=== PATIENT | female | born 1980 | race Caucasian/White ===

== ENCOUNTER 2016-09-12 18:58 | Emergency (ER) | payer OTHER ==
[~2016-09-12] VITALS: Ht 165.1 cm; Wt 77.1 kg
[2016-09-12] MEDS ORDERED: lamoTRIgine 25 MG TABLET. PO STA (19:26)
[2016-09-12] MEDS ORDERED: IV NORMAL SALINE 1000ML BAG 1,000 ML IV ONE (19:30)
[2016-09-12 19:42] LABS: BASO # 0.1 x10^3/uL (0.0-0.2); BASO % 1 % (0-3); EOS % 0 % (0-3); HEMATOCRIT 42.5 % (36.0-47.0); HEMOGLOBIN 14.4 g/dL (12.0-15.5); LYMPH # 1.2 x10^3/uL (1.0-4.8); LYMPH % 16 % (24-48); MEAN CORPUSCULAR HEMOGLOBIN 33 pg (25-35); MEAN CORPUSCULAR HGB CONC 34 g/dL (31-37); MEAN CORPUSCULAR VOLUME 96 fL (79-100); MONO % 4 % (0-9); NEUT % 80 % (31-73); PLATELET COUNT 189 x10^3/uL (140-400); RED BLOOD COUNT 4.44 x10^6/uL (3.50-5.40); RED CELL DISTRIBUTION WIDTH 13.7 % (11.5-14.5); WHITE BLOOD COUNT 7.9 x10^3/uL (4.0-11.0)
--- NOTE | 2016-09-12 19:49 | PHYS DOC ---
Past Medical History Past Medical History: Seizure Additional Past Medical Histor: Lupus, FACTOR V DEFICIENCY Past Surgical History: , Tubal ligation Alcohol Use: Occasionally Drug Use: Marijuana Adult General Chief Complaint Chief Complaint: SEIZURE HPI HPI Patient is a 36 year old female who presents with complaint of seizure episode. Patient states that she has had multiple seizure episodes today. Patient states that she has been out of her medication for the past week. Patient normally takes Lamictal and Onfi for seizures. Patient states that she recently moved to [place]. Her previous neurologist is located in [place]. She states that she has not followed up with them recently and she is currently looking for a new neurologist here in [place]. Patient denies any atypical symptoms from her seizures. Patient states that she feels fatigued at this time which is normal after having a seizure. Patient is alert and oriented to her surroundings. Review of Systems Review of Systems Constitutional: Fatigue, denies fever or chills [] Eyes: Denies change in visual acuity, redness, or eye pain [] HENT: Denies nasal congestion or sore throat [] Respiratory: Denies cough or shortness of breath [] Cardiovascular: Denies chest pain or edema [] GI: Denies abdominal pain, nausea, vomiting, bloody stools or diarrhea [] : Denies dysuria or hematuria [] Musculoskeletal: Denies back pain or joint pain [] Integument: Denies rash or skin lesions [] Neurologic: Headache, denies focal weakness or sensory changes [] Current Medications Current Medications Current Medications Medications (Trade) Dose Ordered Sig/Audrey Start Time Stop Time Status Last Admin Dose Admin Lamotrigine (LaMICtal) 50 mg 1X STAT 09/12/16 19:26 09/12/16 19:33 DC 09/12/16 20:08 50 MG Lorazepam (Ativan) 2 mg 1X ONCE 09/12/16 19:30 09/12/16 19:33 DC 09/12/16 19:59 2 MG Sodium Chloride 1,000 ml @ 1,000 mls/hr 1X ONCE 09/12/16 19:30 09/12/16 20:29 DC 09/12/16 20:00 1,000 MLS/HR Allergies Allergies Allergies Coded Allergies Type Severity Reaction Last Updated Verified Sulfa (Sulfonamide Antibiotics) Allergy Intermediate 6/13/15 No Physical Exam Physical Exam Constitutional: Drowsy, afebrile, no acute distress. [] HENT: Normocephalic, atraumatic, bilateral external ears normal, oropharynx moist, no oral exudates, nose normal. [] Eyes: PERRLA, EOMI, conjunctiva normal, no discharge. [] Neck: Normal range of motion, no tenderness, supple, no stridor. [] Cardiovascular:Heart rate regular rhythm, no murmur [] Lungs & Thorax: Bilateral breath sounds clear to auscultation [] Abdomen: Bowel sounds normal, soft, no tenderness, no masses, no pulsatile masses. [] Skin: Warm, dry, no erythema, no rash. [] Back: No tenderness, no CVA tenderness. [] Extremities: No tenderness, no cyanosis, no clubbing, ROM intact, no edema. [] Neurologic: Drowsy, oriented X 3, normal motor function, normal sensory function , no focal deficits noted. [] Current Patient Data Vital Signs Vital Signs Date Time Temp Pulse Resp B/P (MAP) Pulse Ox O2 Delivery O2 Flow Rate FiO2 09/12/16 21:24 103 119/58 (78) 98 Room Air 09/12/16 20:02 19 09/12/16 18:59 98.5 98.5 Lab Values Laboratory Tests Test 09/12/16 19:03 09/12/16 19:35 White Blood Count 7.9 x10^3/uL (4.0-11.0) Red Blood Count 4.44 x10^6/uL (3.50-5.40) Hemoglobin 14.4 g/dL (12.0-15.5) Hematocrit 42.5 % (36.0-47.0) Mean Corpuscular Volume 96 fL (79-100) Mean Corpuscular Hemoglobin 33 pg (25-35) Mean Corpuscular Hemoglobin Concent 34 g/dL (31-37) Red Cell Distribution Width 13.7 % (11.5-14.5) Platelet Count 189 x10^3/uL (140-400) Neutrophils (%) (Auto) 80 % (31-73) H Lymphocytes (%) (Auto) 16 % (24-48) L Monocytes (%) (Auto) 4 % (0-9) Eosinophils (%) (Auto) 0 % (0-3) Basophils (%) (Auto) 1 % (0-3) Neutrophils # (Auto) 6.3 x10^3uL (1.8-7.7) Lymphocytes # (Auto) 1.2 x10^3/uL (1.0-4.8) Monocytes # (Auto) 0.3 x10^3/uL (0.0-1.1) Eosinophils # (Auto) 0.0 x10^3/uL (0.0-0.7) Basophils # (Auto) 0.1 x10^3/uL (0.0-0.2) Sodium Level 140 mmol/L (136-145) Potassium Level 3.9 mmol/L (3.5-5.1) Chloride Level 101 mmol/L (98-107) Carbon Dioxide Level 23 mmol/L (21-32) Anion Gap 16 (6-14) H Blood Urea Nitrogen 11 mg/dL (7-20) Creatinine 1.1 mg/dL (0.6-1.0) H Estimated GFR (Cockcroft-Gault) 56.2 Glucose Level 96 mg/dL (70-99) Calcium Level 9.1 mg/dL (8.5-10.1) Urine Collection Type Unknown Urine Color Yellow Urine Clarity Clear Urine pH 7.0 Urine Specific [place] 1.025 Urine Protein 100 mg/dL (NEG-TRACE) Urine Glucose (UA) Negative mg/dL (NEG) Urine Ketones (Stick) Negative mg/dL (NEG) Urine Blood Negative (NEG) Urine Nitrite Negative (NEG) Urine Bilirubin Negative (NEG) Urine Urobilinogen Dipstick 0.2 mg/dL (0.2 mg/dL) Urine Leukocyte Esterase Negative (NEG) Urine RBC Occ /HPF (0-2) Urine WBC Occ /HPF (0-4) Urine Squamous Epithelial Cells Few /LPF Urine Bacteria Few /HPF (0-FEW) Urine Hyaline Casts Many /HPF Urine Test Negative (NEG) Urine Opiates Screen Neg (NEG) Urine Methadone Screen Neg (NEG) Urine Barbiturates Neg (NEG) Urine Phencyclidine Screen Neg (NEG) Urine Amphetamine/Methamphetamine Neg (NEG) Urine Benzodiazepines Screen Neg (NEG) Urine Cocaine Screen Neg (NEG) Urine Cannabinoids Screen Pos (NEG) Urine Ethyl Alcohol Neg (NEG) Laboratory Tests 09/12/16 19:03 Laboratory Tests 09/12/16 19:03 EKG EKG Interpreted by me: Heart rate 85, sinus rhythm, normal intervals, normal axis, no acute ST/T-wave abnormalities present [] Radiology/Procedures Radiology/Procedures Not performed [] Course & Med Decision Making Course & Med Decision Making Pertinent Labs and Imaging studies reviewed. (See chart for details) Patient was given IV Ativan and IV fluids in the emergency department. The patient's lab work is unremarkable. The patient was given Lamictal while in the emergency department. I spoke with Dr. Alexis of neurology. He recommended that the patient started on Lamictal 100 mg twice a day. The patient will also be restarted on Onfi 10 mg daily which she stated was her regular dose. He agreed to follow-up with patient in 1-2 weeks to begin regular neurology follow- up and seizure medication management for the patient. Advised return emergency department for any worsening symptoms. Patient voiced understanding and in agreement with treatment plan. Dragon Disclaimer Dragon Disclaimer This electronic medical record was generated, in whole or in part, using a voice recognition dictation system. Departure Departure Impression: Primary Impression: Seizure disorder Disposition: 01 HOME, SELF-CARE Condition: STABLE Referrals: BART BUTT MD (PCP) Patient Instructions: Seizure, Adult Additional Instructions: Follow-up with Dr. Alexis of neurology in the next 1-2 weeks. Take all medications as prescribed. Return to emergency department for any worsening symptoms. Scripts Lamotrigine (LAMICTAL) 100 Mg Tablet 1 TAB PO BID, #60 TAB 0 Refills Prov: SUSHMA ROSAS MD 09/12/16 SUSHMA ROSAS MD Sep 12, 2016 19:49
[2016-09-12 19:50] LABS: CALCIUM 9.1 mg/dL (8.5-10.1); CREATININE 1.1 mg/dL (0.6-1.0); GFR 56.2; POTASSIUM 3.9 mmol/L (3.5-5.1)
[2016-09-12 19:53] LABS: BILIRUBIN,URINE NEGATIVE (NEG); GLUCOSE,URINE NEGATIVE (NEG); NITRITE,URINE NEGATIVE (NEG); PROTEIN,URINE 100 mg/dL (NEG-TRACE); UROBILINOGEN,URINE 0.2 mg/dL (0.2 mg/dL)
[2016-09-12 19:59] LABS: BARBITURATES NEG (NEG); BENZODIAZEPINES NEG (NEG); CANNABINOIDS POS (NEG); COCAINE NEG (NEG); METHADONE NEG (NEG); OPIATES NEG (NEG); PHENCYCLIDINE NEG (NEG)
[2016-09-12 20:08] LABS: BACTERIA,URINE FEW /HPF (0-FEW); RBC,URINE OCC /HPF (0-2); SQUAMOUS EPITHELIAL CELL,UR FEW /LPF; WBC,URINE OCC /HPF (0-4)
[2016-09-12 20:20] LABS: NEG OBC UR NEG; POS OBC UR POS
[2016-09-12] MEDS ORDERED: LAMO100T5 PO (21:22)
[2016-09-12 21:24] VITALS: BP 119/58
--- NOTE | 2016-09-13 08:19 | EKG ---
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
== END 2016-09-12 21:28 | disposition home or self-care (01) ==
LOC: ER 18:58
DX: G40.909 Epilepsy, unspecified, not intractable, without status epilepticus (principal); M32.9 Systemic lupus erythematosus, unspecified; F12.10 Cannabis abuse, uncomplicated; Z79.899 Other long term (current) drug therapy; Z88.2 Allergy status to sulfonamides
CPT/HCPCS: 36415; 80048; 80305; 80320; 81001; 81025; 85027; 93005; 96361; 96374; 99285; J2060; J7030; G0481

== ENCOUNTER 2016-10-01 21:54 | Emergency (ER) | payer OTHER ==
[~2016-10-01] VITALS: Ht 165.1 cm; Wt 76.2 kg
[2016-10-01 22:05] VITALS: BP 130/65
[2016-10-01 22:31] LABS: BASO % 1 % (0-3); EOS % 6 % (0-3); HEMATOCRIT 39.7 % (36.0-47.0); HEMOGLOBIN 13.5 g/dL (12.0-15.5); LYMPH # 2.1 x10^3/uL (1.0-4.8); LYMPH % 37 % (24-48); MEAN CORPUSCULAR HEMOGLOBIN 32 pg (25-35); MEAN CORPUSCULAR HGB CONC 34 g/dL (31-37); MEAN CORPUSCULAR VOLUME 95 fL (79-100); MONO % 6 % (0-9); NEUT % 50 % (31-73); PLATELET COUNT 168 x10^3/uL (140-400); RED CELL DISTRIBUTION WIDTH 13.3 % (11.5-14.5); WHITE BLOOD COUNT 5.5 x10^3/uL (4.0-11.0)
[2016-10-01 22:57] LABS: CALCIUM 9.2 mg/dL (8.5-10.1); GFR 62.7; POTASSIUM 3.4 mmol/L (3.5-5.1)
[2016-10-01] MEDS ORDERED: IV NORMAL SALINE 1000ML BAG 1,000 ML IV ONE (23:00)
[2016-10-01 23:03] LABS: ALBUMIN 3.8 g/dL (3.4-5.0); TOTAL BILIRUBIN 0.4 mg/dL (0.2-1.0); TOTAL PROTEIN 7.6 g/dL (6.4-8.2)
[2016-10-01 23:18] LABS: BILIRUBIN,URINE NEGATIVE (NEG); GLUCOSE,URINE NEGATIVE (NEG); NITRITE,URINE NEGATIVE (NEG); PH,URINE 5.5; PROTEIN,URINE NEGATIVE (NEG-TRACE); UROBILINOGEN,URINE 0.2 mg/dL (0.2 mg/dL)
[2016-10-01 23:29] LABS: BACTERIA,URINE MODERATE /HPF (0-FEW); RBC,URINE 0 /HPF (0-2); SQUAMOUS EPITHELIAL CELL,UR MOD /LPF
--- NOTE | 2016-10-01 23:53 | PHYS DOC ---
Past Medical History Past Medical History: Seizure Additional Past Medical Histor: Lupus, FACTOR V , Past Surgical History: , Tubal ligation Alcohol Use: Occasionally Drug Use: Marijuana Adult General Chief Complaint Chief Complaint: DIZZY/LIGHT HEADED HPI HPI Patient is a 36 year old female who presents here today complaining of feeling weak and dizzy after painting in a closed room. She reports that the room was well ventilated. Patient reports that approximately 8:30 PM while she was painting she started feeling dizzy. Patient denies any other symptomology. Patient has any fevers shakes chills nausea vomiting diarrhea dysuria frequency urgency chest pain or shortness of breath. Patient has any cough or lower STEMI edema. Patient reports she does smoke. No alcohol or drugs. Patient does have a history of lupus as well as factor V Leiden. Patient's last menstrual period was Wednesday. Patient denies any other symptomology at this time. Patient has any melena or bright red blood per rectum. Patient denies any hematochezia or coffee ground emesis. She is physical exam is unremarkable the ER. She is alert awake oriented 3 moving all extremities well. Patient has a unremarkable exam. Patient's workup in ER has been unremarkable. Patient's labs were all within normal limits. Patient be discharged home in stable condition with likely dehydration. Review of Systems Review of Systems Constitutional: Denies fever or chills [] Eyes: Denies change in visual acuity, redness, or eye pain [] All other review systems are negative except as documented in the history of present illness portion. Current Medications Current Medications Current Medications Medications (Trade) Dose Ordered Sig/[facility] Start Time Stop Time Status Last Admin Dose Admin Sodium Chloride 1,000 ml @ 1,000 mls/hr 1X ONCE 10/01/16 23:00 10/01/16 23:59 DC 10/01/16 22:36 1,000 MLS/HR Allergies Allergies Allergies Coded Allergies Type Severity Reaction Last Updated Verified Sulfa (Sulfonamide Antibiotics) Allergy Intermediate 08/25/14 No Physical Exam Physical Exam Constitutional: Well developed, well nourished, no acute distress, non-toxic appearance. [] HENT: Normocephalic, atraumatic, bilateral external ears normal, oropharynx moist, no oral exudates, nose normal. [] Eyes: PERRLA, EOMI, conjunctiva normal, no discharge. [] Neck: Normal range of motion, no tenderness, supple, no stridor. [] Cardiovascular:Heart rate regular rhythm, no murmur [] Lungs & Thorax: Bilateral breath sounds clear to auscultation [] Abdomen: Bowel sounds normal, soft, no tenderness, no masses, no pulsatile masses. [] Skin: Warm, dry, no erythema, no rash. [] Back: No tenderness, no CVA tenderness. [] Extremities: No tenderness, no cyanosis, no clubbing, ROM intact, no edema. [] Neurologic: Alert and oriented X 3, normal motor function, normal sensory function, no focal deficits noted. [] Psychologic: Affect normal, judgement normal, mood normal. [] Current Patient Data Vital Signs Vital Signs Date Time Temp Pulse Resp B/P (MAP) Pulse Ox O2 Delivery O2 Flow Rate FiO2 10/01/16 22:05 98.1 78 18 130/65 (86) 97 Room Air 98.1 Lab Values Laboratory Tests Test 10/01/16 22:22 10/01/16 23:10 White Blood Count 5.5 x10^3/uL (4.0-11.0) Red Blood Count 4.20 x10^6/uL (3.50-5.40) Hemoglobin 13.5 g/dL (12.0-15.5) Hematocrit 39.7 % (36.0-47.0) Mean Corpuscular Volume 95 fL (79-100) Mean Corpuscular Hemoglobin 32 pg (25-35) Mean Corpuscular Hemoglobin Concent 34 g/dL (31-37) Red Cell Distribution Width 13.3 % (11.5-14.5) Platelet Count 168 x10^3/uL (140-400) Neutrophils (%) (Auto) 50 % (31-73) Lymphocytes (%) (Auto) 37 % (24-48) Monocytes (%) (Auto) 6 % (0-9) Eosinophils (%) (Auto) 6 % (0-3) H Basophils (%) (Auto) 1 % (0-3) Neutrophils # (Auto) 2.7 x10^3uL (1.8-7.7) Lymphocytes # (Auto) 2.1 x10^3/uL (1.0-4.8) Monocytes # (Auto) 0.3 x10^3/uL (0.0-1.1) Eosinophils # (Auto) 0.4 x10^3/uL (0.0-0.7) Basophils # (Auto) 0.0 x10^3/uL (0.0-0.2) Sodium Level 142 mmol/L (136-145) Potassium Level 3.4 mmol/L (3.5-5.1) L Chloride Level 102 mmol/L (98-107) Carbon Dioxide Level 28 mmol/L (21-32) Anion Gap 12 (6-14) Blood Urea Nitrogen 8 mg/dL (7-20) Creatinine 1.0 mg/dL (0.6-1.0) Estimated GFR (Cockcroft-Gault) 62.7 BUN/Creatinine Ratio 8 (6-20) Glucose Level 116 mg/dL (70-99) H Calcium Level 9.2 mg/dL (8.5-10.1) Total Bilirubin 0.4 mg/dL (0.2-1.0) Aspartate Amino Transferase (AST) 23 U/L (15-37) Alanine Aminotransferase (ALT) 28 U/L (14-59) Alkaline Phosphatase 65 U/L (46-116) Troponin I Quantitative 0.025 ng/mL (0.000-0.055) Total Protein 7.6 g/dL (6.4-8.2) Albumin 3.8 g/dL (3.4-5.0) Albumin/Globulin Ratio 1.0 (1.0-1.7) Urine Collection Type Void Urine Color Yellow Urine Clarity Clear Urine pH 5.5 Urine Specific [place] 1.015 Urine Protein Negative mg/dL (NEG-TRACE) Urine Glucose (UA) Negative mg/dL (NEG) Urine Ketones (Stick) Negative mg/dL (NEG) Urine Blood Negative (NEG) Urine Nitrite Negative (NEG) Urine Bilirubin Negative (NEG) Urine Urobilinogen Dipstick 0.2 mg/dL (0.2 mg/dL) Urine Leukocyte Esterase Negative (NEG) Urine RBC 0 /HPF (0-2) Urine WBC 5-10 /HPF (0-4) Urine Squamous Epithelial Cells Mod /LPF Urine Bacteria Moderate /HPF (0-FEW) Urine Hyaline Casts Occasional /HPF Urine Mucus Mod /LPF Laboratory Tests 10/01/16 22:22 Laboratory Tests 10/01/16 22:22 Microbiology 10/01/16 Urine Culture - Preliminary, Resulted 10/01/16 Urine Culture Result 1 (FARZAD) - Preliminary, Resulted EKG EKG [] Radiology/Procedures Radiology/Procedures [] Course & Med Decision Making Course & Med Decision Making Pertinent Labs and Imaging studies reviewed. (See chart for details) [] Dragon Disclaimer Dragon Disclaimer This electronic medical record was generated, in whole or in part, using a voice recognition dictation system. Departure Departure Impression: Primary Impression: Dehydration Disposition: 01 HOME, SELF-CARE Condition: IMPROVED Referrals: BART BUTT MD (PCP) Patient Instructions: Dehydration, Adult MARCUS MORENO MD Oct 01, 2016 23:53
--- NOTE | 2016-10-02 12:26 | EKG ---
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
== END 2016-10-02 00:05 | disposition home or self-care (01) ==
LOC: ER 21:54
DX: E86.0 Dehydration (principal); R53.1 Weakness; R42 Dizziness and giddiness; M32.9 Systemic lupus erythematosus, unspecified; F17.200 Nicotine dependence, unspecified, uncomplicated; F12.10 Cannabis abuse, uncomplicated; Z98.51 Tubal ligation status; Z88.2 Allergy status to sulfonamides
CPT/HCPCS: 36415; 80053; 81001; 84484; 85027; 87086; 93005; 96360; 99285; J7030

== ENCOUNTER → 2016-10-01 | Outpatient (CLI) | payer OTHER ==
[2016-09-12 21:24] VITALS: BP 119/58
[~2016-10-01] MED LIST: LAMO100T5 PO
[2016-10-01 08:36] LABS: BASO % 1 % (0-3); EOS % 10 % (0-3); HEMATOCRIT 40.5 % (36.0-47.0); HEMOGLOBIN 13.7 g/dL (12.0-15.5); LYMPH # 1.7 x10^3/uL (1.0-4.8); LYMPH % 34 % (24-48); MEAN CORPUSCULAR HEMOGLOBIN 32 pg (25-35); MEAN CORPUSCULAR HGB CONC 34 g/dL (31-37); MEAN CORPUSCULAR VOLUME 95 fL (79-100); MONO % 8 % (0-9); NEUT % 48 % (31-73); PLATELET COUNT 176 x10^3/uL (140-400); RED BLOOD COUNT 4.29 x10^6/uL (3.50-5.40); RED CELL DISTRIBUTION WIDTH 12.9 % (11.5-14.5)
[2016-10-01 08:39] LABS: WHITE BLOOD COUNT 5.1 x10^3/uL (4.0-11.0)
[2016-10-01 08:45] LABS: BARBITURATES NEG (NEG); BENZODIAZEPINES POS (NEG); CANNABINOIDS NEG (NEG); COCAINE NEG (NEG); METHADONE NEG (NEG); OPIATES NEG (NEG); PHENCYCLIDINE NEG (NEG)
[2016-10-01 09:11] LABS: ALBUMIN 3.6 g/dL (3.4-5.0); CALCIUM 9.6 mg/dL (8.5-10.1); CREATININE 0.8 mg/dL (0.6-1.0); GFR 81.2; POTASSIUM 3.6 mmol/L (3.5-5.1); TOTAL BILIRUBIN 0.3 mg/dL (0.2-1.0); TOTAL PROTEIN 7.3 g/dL (6.4-8.2)
[2016-10-04 22:08] LABS: LEVETIRACETAM 4.7 ug/mL (10.0-40.0)
[2016-10-05 17:13] LABS: LAMOTRIGINE LEVEL 2.5 ug/mL (2.0-20.0)
== END | disposition home or self-care (01) ==
LOC: LAB 08:04
PROVIDERS: ATTEND Psychiatry & Neurology Neurology
DX: R56.9 Unspecified convulsions (principal)
CPT/HCPCS: 36415; 80053; 80175; 80177; 85027; G0481

== ENCOUNTER → 2016-10-02 | Outpatient (CLI) | payer OTHER ==
[2016-10-01 22:05] VITALS: BP 130/65
--- NOTE | 2016-10-05 21:10 | EEG ---
DATE OF SERVICE: 10/02/2016 EEG NUMBER: [id number]. OBJECTIVE: This is a 36-year-old female patient with history of seizure. EEG was requested to evaluate the seizure activity. METHODS: Twenty electrodes were applied according to the international 10-20 electrode placement system. EKG monitoring, hyperventilation, intermittent photic stimulation, monopolar and bipolar montages are routinely utilized. The record was obtained on a digital system with video monitoring. FINDINGS: 1. Background: The patient was recorded in the awake and drowsy states. No sleep state was recorded. The overall background amplitude is 10-20 microvolts. A posterior dominant rhythm of 8-9 Hz is observed. 2. Abnormalities: No specific epileptiform discharge or electrographic seizure is seen. No focal or diffuse slowing. 3. Activation: Hyperventilation was performed with good efforts and normal response. Intermittent photic stimulation was performed with photic driving. No specific epileptiform discharge or electrographic seizure induced by hyperventilation or intermittent photic stimulation. IMPRESSION: This EEG is a normal study for the awake and drowsy states. No sleep state was recorded. No focal, lateralizing, specific epileptiform discharge or electrographic seizure is seen; however, a normal EEG does not rule out seizure. OVIDIO FABIAN MD DR: YOMI/lo JOB#: [id number] / [id number]
== END | disposition home or self-care (01) ==
LOC: RT 10:34
PROVIDERS: ATTEND Psychiatry & Neurology Neurology
DX: R56.9 Unspecified convulsions (principal)
CPT/HCPCS: 95816

== ENCOUNTER 2016-10-11 00:19 | Emergency (ER) | payer OTHER ==
[~2016-10-11] VITALS: Ht 165.1 cm; Wt 77.1 kg
[2016-10-11 00:22] VITALS: BP 135/75
[2016-10-11] MEDS ORDERED: ACETAMINOPHEN/CODEINE 300/30MG TABLET. PO ONE (01:00)
[2016-10-11] MEDS ORDERED: IBUPROFEN 400 MG TABLET. PO ONE (01:00)
[2016-10-11] MEDS ORDERED: HYDROcodone/APAP 5/325MG 1 TAB TABLET PO ONE (01:30)
--- NOTE | 2016-10-11 01:38 | PHYS DOC ---
Past Medical History Past Medical History: Seizure Additional Past Medical Histor: Lupus, FACTOR V , Past Surgical History: , Tubal ligation Alcohol Use: Occasionally Drug Use: Marijuana Adult General Chief Complaint Chief Complaint: FOOT INJURY PAIN HPI HPI Patient is a 36 year old female who comes in with complaints of bilateral foot pain after falling on the stairs, patient denies any other injury, patient has no other complaints. There was no head, neck, chest, abdomen, pelvis or knee trauma Review of Systems Review of Systems Constitutional: Denies fever or chills [] HENT: No head or neck injury Respiratory: No shortness of breath [] Cardiovascular: No chest pain GI: Denies abdominal pain, Musculoskeletal: Denies back pain. Denies hip pain or knee pain. Has bilateral foot pain Integument: Denies rash or skin lesions [] Neurologic: Denies headache, focal weakness or sensory changes [] all other systems reviewed and found to be negative unless otherwise stated Current Medications Current Medications Current Medications Medications (Trade) Dose Ordered Sig/Audrey Start Time Stop Time Status Last Admin Dose Admin Acetaminophen/ Codeine Phosphate (Tylenol #3) 1 tab 1X ONCE 10/11/16 01:00 10/11/16 01:01 DC 10/11/16 00:54 1 TAB Acetaminophen/ Hydrocodone Bitart (Lortab 5/325) 1 tab 1X ONCE 10/11/16 01:30 10/11/16 01:38 DC 10/11/16 01:27 1 TAB Ibuprofen (Motrin) 400 mg 1X ONCE 10/11/16 01:00 10/11/16 01:01 DC 10/11/16 00:54 400 MG Allergies Allergies Allergies Coded Allergies Type Severity Reaction Last Updated Verified Sulfa (Sulfonamide Antibiotics) Allergy Intermediate 08/25/14 No Physical Exam Physical Exam Constitutional: Well developed, well nourished, mild distress, non-toxic appearance. [] HENT: Normocephalic, atraumatic, Eyes: EOMI, conjunctiva normal, no discharge. [] Neck: Normal range of motion, no tenderness, Cardiovascular: Distal pulses intact, no chest deformity Lungs & Thorax: No tachypnea Abdomen: Nondistended, nontender Skin: Warm, dry, no erythema, no rash. No lacerations. Bruising lateral aspect of the left foot. Back: No tenderness, Extremities: Tenderness middle of the left foot at the lateral aspect, tenderness at the right ankle Neurologic: Alert and oriented X 3, normal motor function, no focal deficits noted. [] Psychologic: Affect normal, judgement normal, mood normal. [] Current Patient Data Vital Signs Vital Signs Date Time Temp Pulse Resp B/P (MAP) Pulse Ox O2 Delivery O2 Flow Rate FiO2 10/11/16 01:27 20 10/11/16 00:22 97.9 90 97 Room Air 97.9 EKG EKG [] Radiology/Procedures Radiology/Procedures X-ray read by me, preliminarily and this has been explained to the patient: Distal fibular fracture right, psudojones fracture left. Findings discussed with Dr Liu who will see pt in office in one week. Recommends camboot for right foot/ankle.[] Course & Med Decision Making Course & Med Decision Making Pertinent Labs and Imaging studies reviewed. (See chart for details) Patient is to follow up as directed, she agrees to do so 0200 Posterior splint application done by Mariann Good alignment, neurovascularly intact, no signs of compartment syndrome. Unfortunately, we do not have CAM boots in the ED but the patient states she we' ll go and get one after being discharged [] Dragon Disclaimer Dragon Disclaimer This electronic medical record was generated, in whole or in part, using a voice recognition dictation system. Departure Departure Impression: Primary Impression: Ankle fracture, right Disposition: 01 HOME, SELF-CARE Condition: IMPROVED Referrals: BART BUTT MD (PCP) TERE LIU MD Additional Instructions: There is a possibility he may have a fracture in one of the tarsal bones in the left foot. The x-rays read will be rechecked by her urologist in the morning and he will be notified if you they confirmed a fracture there. In the meantime place wear the stiff shoe on the left foot. Please keep the splint in the right ankle until you obtain the CAM boot for the right ankle. Please do not bear weight on the right foot and use crutches. Once you have the CAM boot you can walk on it. a prescription for a CAM boot is being provided for you Please follow up with Dr Liu in one week, call wednesday for an appointment. Scripts Ibuprofen (IBUPROFEN) 400 Mg Tablet 400 MG PO PRN Q6HRS Y for PAIN for 7 Days, #20 TAB Prov: Jacob COYLE MD 10/11/16 Hydrocodone/Apap 5-325 (NORCO 5-325 TABLET) 1 Each Tablet 1 TAB PO PRN Q6HRS Y for PAIN for 16 Days, TAB 0 Refills Prov: Jacob COYLE MD 10/11/16 Jacob COYLE MD Oct 11, 2016 01:38
[2016-10-11] MEDS ORDERED: HYDR-971 PO (01:56)
[2016-10-11] MEDS ORDERED: IBUP-1027 PO (01:56)
--- NOTE | 2016-10-11 07:44 | RAD ---
Indications: Injury. Pain. Three-view right ankle series: There is a nondisplaced oblique fracture distal right fibular metadiaphysis. The mortise ankle joint is intact. Three-view study of the right foot: No acute fracture or dislocation or osteolytic process is seen. Three-view study of the left foot: There is a nondisplaced transverse fracture of the base of the fifth metatarsal bone. No dislocation or osteolytic process is seen. IMPRESSION: Post traumatic fractures of the distal right fibula and the fifth metatarsal bone of the left foot.
[2016-10-11] MEDS ORDERED: CLOB10TA PO (15:22)
[2016-10-11] MEDS ORDERED: CITA20TA9 PO (15:22)
[2016-10-12] MEDS ORDERED: WARF5TAB7 PO (17:06)
[2016-10-12] MEDS ORDERED: CYCL10TA2 PO (17:06)
[2016-10-12] MEDS ORDERED: LEVE500T6 PO (17:06)
== END 2016-10-11 02:24 | disposition home or self-care (01) ==
LOC: ER 00:19
DX: S92.355A Nondisplaced fracture of fifth metatarsal bone, left foot, initial encounter for closed fracture (principal); M32.9 Systemic lupus erythematosus, unspecified; F12.10 Cannabis abuse, uncomplicated; W10.9XXA Fall (on) (from) unspecified stairs and steps, initial encounter; Y93.89 Activity, other specified; Y99.8 Other external cause status; Y92.89 Other specified places as the place of occurrence of the external cause
CPT/HCPCS: 29515; 73610; 73630; 99284-25

== ENCOUNTER 2016-10-11 08:09 | Observation (INO) | payer OTHER ==
[~2016-10-11] VITALS: Ht 165.1 cm; Wt 78.0 kg
[~2016-10-11 08:09] MED LIST changes: +HYDR-971 PO; +IBUP-1027 PO
[2016-10-11 09:10] LABS: BASO % 0 % (0-3); EOS % 1 % (0-3); HEMATOCRIT 40.2 % (36.0-47.0); HEMOGLOBIN 13.5 g/dL (12.0-15.5); LYMPH # 0.5 x10^3/uL (1.0-4.8); LYMPH % 5 % (24-48); MEAN CORPUSCULAR HEMOGLOBIN 32 pg (25-35); MEAN CORPUSCULAR HGB CONC 34 g/dL (31-37); MEAN CORPUSCULAR VOLUME 97 fL (79-100); MONO % 5 % (0-9); NEUT % 89 % (31-73); PLATELET COUNT 151 x10^3/uL (140-400); RED BLOOD COUNT 4.17 x10^6/uL (3.50-5.40); RED CELL DISTRIBUTION WIDTH 13.5 % (11.5-14.5); WHITE BLOOD COUNT 9.2 x10^3/uL (4.0-11.0)
[2016-10-11 09:17] LABS: ALBUMIN 3.7 g/dL (3.4-5.0); CALCIUM 8.1 mg/dL (8.5-10.1); CREATININE 1.1 mg/dL (0.6-1.0); GFR 56.2; POTASSIUM 3.6 mmol/L (3.5-5.1); TOTAL BILIRUBIN 0.2 mg/dL (0.2-1.0); TOTAL PROTEIN 7.3 g/dL (6.4-8.2)
[2016-10-11 09:25] LABS: INR 1.1 (0.8-1.1); PROTHROMBIN TIME PATIENT 13.7 SEC (11.7-14.0)
--- NOTE | 2016-10-11 10:27 | PHYS DOC ---
Past Medical History Past Medical History: Seizure Additional Past Medical Histor: Lupus, FACTOR V Past Surgical History: , Tubal ligation Alcohol Use: Occasionally Drug Use: Marijuana Adult General Chief Complaint Chief Complaint: SEIZURE HPI HPI Patient is a 36 year old female brought to the ED from home by EMS with a report of 3 seizures this morning. History is from EMS and the patient's who came in as well. Patient had 3 brief seizures in bed this morning. She does have a seizure disorder. When she has one seizure he usually doesn't worry about it but if she has more than one he will call 911. Today EMS report a brief generalized seizure in route to the ED. They gave her 5 mg of IV Versed in route which did stop the seizure. Patient does have a history of a seizure disorder. She recently had an EEG that did not show any seizure activity. They used to live in [place] and has moved to this area recently, she has been seeing for seizure disorder. Meds brought with the patient by EMS include lamotrigine 100 mg twice a day, Onfi 10 mg daily, and Levitarem 500 mg twice a day. Patient's states that he believes she did miss last night's dose of seizure medications because she was actually seen in the ED last evening for a fall with a broken foot. She has not had any medications this morning. 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 Patient brings in a bag of medications and has been states she is taking her medications as prescribed. Review of Systems Review of Systems Review of systems was not able to be obtained due to the patient's altered mental status Current Medications Current Medications Current Medications Medications (Trade) Dose Ordered Sig/Audrey Start Time Stop Time Status Last Admin Dose Admin Acetaminophen/ Hydrocodone Bitart (Lortab 5/325) 1 tab 1X ONCE 10/11/16 10:45 10/11/16 10:46 DC 10/11/16 10:45 1 TAB Levetiracetam 1000 mg/Sodium Chloride 110 ml @ 440 mls/hr 1X ONCE 10/11/16 08:30 10/11/16 08:44 DC 10/11/16 08:38 440 MLS/HR Levetiracetam 500 mg/Sodium Chloride 100 ml @ 400 mls/hr 1X ONCE 10/11/16 08:15 10/11/16 08:22 DC Allergies Allergies Allergies Coded Allergies Type Severity Reaction Last Updated Verified Sulfa (Sulfonamide Antibiotics) Allergy Intermediate 08/25/14 No Physical Exam Physical Exam Constitutional: Well developed, well nourished, good color, snoring respirations , appears postictal, no response to verbal or painful on arrival HENT: Normocephalic, atraumatic, bilateral external ears normal, oropharynx moist, nose normal. [] Eyes: PERRLA, EOMI, conjunctiva normal, no discharge. [] Neck: Normal range of motion, no stridor. [] Cardiovascular:Heart rate regular rhythm, no murmur [] Lungs & Thorax: Bilateral breath sounds clear to auscultation [] Abdomen: Bowel sounds normal, soft, no masses, no pulsatile masses. [] Skin: Warm, dry, no erythema, no rash. [] Extremities: Right leg is in a stirrup splint and left foot is in a postop shoe secondary to her visit last night in the ED with fractures diagnosed, no edema, no cyanosis, good color Neurologic: Patient appears postictal on arrival with snoring respirations. She is having very minimal spontaneous movements of all 4 extremities on occasion but mostly unresponsive. Normal to decreased tone in all 4 extremities. Current Patient Data Vital Signs Vital Signs Date Time Temp Pulse Resp B/P (MAP) Pulse Ox O2 Delivery O2 Flow Rate FiO2 10/11/16 11:00 74 18 124/70 (88) 94 Room Air 10/11/16 09:09 4.0 10/11/16 08:09 97.9 97.9 Lab Values Laboratory Tests Test 10/11/16 08:50 White Blood Count 9.2 x10^3/uL (4.0-11.0) Red Blood Count 4.17 x10^6/uL (3.50-5.40) Hemoglobin 13.5 g/dL (12.0-15.5) Hematocrit 40.2 % (36.0-47.0) Mean Corpuscular Volume 97 fL (79-100) Mean Corpuscular Hemoglobin 32 pg (25-35) Mean Corpuscular Hemoglobin Concent 34 g/dL (31-37) Red Cell Distribution Width 13.5 % (11.5-14.5) Platelet Count 151 x10^3/uL (140-400) Neutrophils (%) (Auto) 89 % (31-73) H Lymphocytes (%) (Auto) 5 % (24-48) L Monocytes (%) (Auto) 5 % (0-9) Eosinophils (%) (Auto) 1 % (0-3) Basophils (%) (Auto) 0 % (0-3) Neutrophils # (Auto) 8.1 x10^3uL (1.8-7.7) H Lymphocytes # (Auto) 0.5 x10^3/uL (1.0-4.8) L Monocytes # (Auto) 0.4 x10^3/uL (0.0-1.1) Eosinophils # (Auto) 0.1 x10^3/uL (0.0-0.7) Basophils # (Auto) 0.0 x10^3/uL (0.0-0.2) Segmented Neutrophils % 93 % (35-66) H Band Neutrophils % 2 % (0-9) Lymphocytes % 4 % (24-48) L Eosinophils % 1 % (0-5) Platelet Estimate Adequate (ADEQUATE) Prothrombin Time 13.7 SEC (11.7-14.0) Prothrombin Time INR 1.1 (0.8-1.1) Sodium Level 139 mmol/L (136-145) Potassium Level 3.6 mmol/L (3.5-5.1) Chloride Level 104 mmol/L (98-107) Carbon Dioxide Level 23 mmol/L (21-32) Anion Gap 12 (6-14) Blood Urea Nitrogen 10 mg/dL (7-20) Creatinine 1.1 mg/dL (0.6-1.0) H Estimated GFR (Cockcroft-Gault) 56.2 BUN/Creatinine Ratio 9 (6-20) Glucose Level 87 mg/dL (70-99) Calcium Level 8.1 mg/dL (8.5-10.1) L Total Bilirubin 0.2 mg/dL (0.2-1.0) Aspartate Amino Transferase (AST) 24 U/L (15-37) Alanine Aminotransferase (ALT) 22 U/L (14-59) Alkaline Phosphatase 54 U/L (46-116) Total Protein 7.3 g/dL (6.4-8.2) Albumin 3.7 g/dL (3.4-5.0) Albumin/Globulin Ratio 1.0 (1.0-1.7) Laboratory Tests 10/11/16 08:50 Laboratory Tests 10/11/16 08:50 EKG EKG [] Radiology/Procedures Radiology/Procedures CT scan of the head read by the radiologist. No acute findings. [] Course & Med Decision Making Course & Med Decision Making Pertinent Labs and Imaging studies reviewed. (See chart for details) 36 yo female who does have a history of seizure disorder and is on 3 medications for seizures presents after having 3 seizures at home and one in route by EMS. Evidently I talked to the patient's that this is not terribly unusual. He states that "stress" bring on her seizures. Also reportedly she did miss her doses last night of seizure medications because of having a fall, injury, being in the ED. Patient was given IV Versed 5 mg by EMS for a witnessed seizure. Therefore, she presented to the ED not only postictal but having a large amount of Versed on board. She was observed for over an hour and did not really regain a normal level of consciousness although she slowly was more responsive, would open her eyes to verbal but not able to verbally answer. I did decide to CT her head because of this delayed improvement which was negative. She was given IV Keppra 1 g in the ED for 4 seizures. She does take Keppra at home but, see below, compliance is in doubt. I discussed compliance with the patient . He believes that she is usually compliant, but he states she could definitely have missed a dose or even to since she was in the emergency department last night after a fall and a fracture. I also did note that despite having warfarin bottles in her bag, she has an INR of 1.1. I believe that the patient should be admitted for observation and mental status checks since she is not back to baseline after having had 4 seizures this morning. She is not having continued seizures. She is not in status. There has been no seizure activity in the emergency department. After postictal state resolved, she will open her eyes, she will make some spontaneous movements of her extremities, and then as she improved she began to complain of pain and requested pain pill with her foot fracture diagnosed last night. I discussed the case with Dr. Montoya who will admit the patient. I wrote bridge orders. At the time of transfer from the ED to the floor, the patient has eyes open, discussing her foot pain, but remains somewhat lethargic and not back to her baseline according to her . She is nonfocal, generally somewhat depressed LOC, which certainly could be a result of having had 4 seizures and IV Versed. [] Dragon Disclaimer Dragon Disclaimer This electronic medical record was generated, in whole or in part, using a voice recognition dictation system. Departure Departure Impression: Primary Impression: Seizure Additional Impression: Altered mental status Disposition: 09 ADMITTED INPATIENT Admitting Physician: Shen Montoya Referrals: BART BUTT MD (PCP) Problem Qualifiers MANDY GUSMAN MD Oct 11, 2016 10:27
[2016-10-11 10:33] LABS: % EOS 1 % (0-5); PLT ESTIMATE ADEQUATE (ADEQUATE)
--- NOTE | 2016-10-11 10:43 | RAD ---
Clinical indications: Seizure. No improvement in mental status change. On warfarin.. Technique: Noncontrast axial cross sectional scanning of the head was performed. Comparison: February 05, 2015. PQRS Compliance Statement: One or more of the following individualized dose reduction techniques were utilized for this examination: 1. Automated exposure control 2. Adjustment of the mA and/or kV according to patient size 3. Use of iterative reconstruction technique Findings: No acute intracranial hemorrhage or midline shift or mass-effect or hydrocephalus or extra-axial fluid collection is seen. No focal hypodense area or sulci effacement is seen to indicate an acute infarct or edema radiographically. No skull fracture or pneumocephalus is seen. No opacification of the mastoid sinuses or the paranasal sinuses is seen. The maxillary sinuses are not completely seen in this study. Impression: No acute intracranial abnormality is seen.
[2016-10-11] MEDS ORDERED: HYDROcodone/APAP 5/325MG 1 TAB TABLET PO ONE (10:45)
[2016-10-11 11:52] VITALS: BP 122/50
[2016-10-11 11:53] VITALS: BP 122/50
[2016-10-11 15:03] VITALS: BP 105/48
[2016-10-11] MEDS ORDERED: CLOB10TA PO (15:22)
[2016-10-11] MEDS ORDERED: CITA20TA9 PO (15:22)
[2016-10-11] MEDS: HYDROcodone/APAP 5/325MG 1 TAB TABLET PO PRN (18:28)
--- NOTE | 2016-10-11 18:54 | PDOC2 ---
NEUROLOGY CONSULT Date of Admission Date of Admission Full Report Dictated DATE: 10/11/16 TIME: 18:51 Reason for Consult Reason for Consult: Patient is a 36-year-old woman with a long-standing seizure disorder. She has been on polypharmacy with levetiracetam, lamotrigine and Onfi. She missed 2 dosages because of extenuating circumstances. She had 3 seizures at home and one in the ambulance. Her usual anticonvulsants have been resumed. If she remains seizure free tomorrow morning that she may be dismissed from a neurologic perspective and follow-up with Dr. Moore with whom she has seen before. Current Medications Current Medications Current Medications Levetiracetam 500 mg/Sodium Chloride 100 ml @ 400 mls/hr 1X ONCE IV ; Start at 08:15; Stop 10/11/16 at 08:22; Status DC Levetiracetam 1000 mg/Sodium Chloride 110 ml @ 440 mls/hr 1X ONCE IV Last administered on 10/11/16 08:38; Start 10/11/16 at 08:30; Stop 10/11/16 at 08:44 ; Status DC Acetaminophen/ Hydrocodone Bitart (Lortab 5/325) 1 tab 1X ONCE PO Last administered on 10/11/16 10:45; Start 10/11/16 at 10:45; Stop 10/11/16 at 10:46 ; Status DC Levetiracetam (Keppra) 500 mg BID PO ; Start 10/11/16 at 21:00 Lamotrigine (LaMICtal) 100 mg BID PO ; Start 10/11/16 at 21:00 Non-Formulary Medication 1 ea DAILY08 PO ; Start 10/12/16 at 08:00; Status UNV Sodium Chloride 500 ml @ 500 mls/hr 1X ONCE IV Last administered on 18:29; Start 10/11/16 at 19:00; Stop 10/11/16 at 19:59 Acetaminophen/ Hydrocodone Bitart (Lortab 5/325) 1 tab PRN Q4HRS PRN PO PAIN Last administered on 10/11/16 18:28; Start 10/11/16 at 18:30 Active Scripts Active Ibuprofen 400 Mg Tablet 400 Mg PO PRN Q6HRS PRN 7 Days [place] 5-325 Tablet (Acetaminophen/Hydrocodone Bitart) 1 Each Tablet 1 Tab PO PRN Q6HRS PRN 16 Days Lamictal (Lamotrigine) 100 Mg Tablet 1 Tab PO BID Reported Celexa (Citalopram Hydrobromide) 20 Mg Tablet 1 Tab PO DAILY Onfi (Clobazam) 10 Mg Tablet 10 Mg PO Allergies Allergies: Coded Allergies: Sulfa (Sulfonamide Antibiotics) (Unverified Allergy, Intermediate, 08/25/14 ) Vitals VITALS Vital Signs Date Time Temp Pulse Resp B/P (MAP) Pulse Ox O2 Delivery O2 Flow Rate FiO2 10/11/16 18:28 98 Room Air 4.0 10/11/16 15:03 98.7 82 19 105/48 (67) 98.7 Labs Labs Laboratory Tests Test 10/11/16 08:50 White Blood Count 9.2 x10^3/uL (4.0-11.0) Red Blood Count 4.17 x10^6/uL (3.50-5.40) Hemoglobin 13.5 g/dL (12.0-15.5) Hematocrit 40.2 % (36.0-47.0) Mean Corpuscular Volume 97 fL (79-100) Mean Corpuscular Hemoglobin 32 pg (25-35) Mean Corpuscular Hemoglobin Concent 34 g/dL (31-37) Red Cell Distribution Width 13.5 % (11.5-14.5) Platelet Count 151 x10^3/uL (140-400) Neutrophils (%) (Auto) 89 % (31-73) Lymphocytes (%) (Auto) 5 % (24-48) Monocytes (%) (Auto) 5 % (0-9) Eosinophils (%) (Auto) 1 % (0-3) Basophils (%) (Auto) 0 % (0-3) Neutrophils # (Auto) 8.1 x10^3uL (1.8-7.7) Lymphocytes # (Auto) 0.5 x10^3/uL (1.0-4.8) Monocytes # (Auto) 0.4 x10^3/uL (0.0-1.1) Eosinophils # (Auto) 0.1 x10^3/uL (0.0-0.7) Basophils # (Auto) 0.0 x10^3/uL (0.0-0.2) Segmented Neutrophils % 93 % (35-66) Band Neutrophils % 2 % (0-9) Lymphocytes % 4 % (24-48) Eosinophils % 1 % (0-5) Platelet Estimate Adequate (ADEQUATE) Prothrombin Time 13.7 SEC (11.7-14.0) Prothromb Time International Ratio 1.1 (0.8-1.1) Sodium Level 139 mmol/L (136-145) Potassium Level 3.6 mmol/L (3.5-5.1) Chloride Level 104 mmol/L (98-107) Carbon Dioxide Level 23 mmol/L (21-32) Anion Gap 12 (6-14) Blood Urea Nitrogen 10 mg/dL (7-20) Creatinine 1.1 mg/dL (0.6-1.0) Estimated GFR (Cockcroft-Gault) 56.2 BUN/Creatinine Ratio 9 (6-20) Glucose Level 87 mg/dL (70-99) Calcium Level 8.1 mg/dL (8.5-10.1) Total Bilirubin 0.2 mg/dL (0.2-1.0) Aspartate Amino Transf (AST/SGOT) 24 U/L (15-37) Alanine Aminotransferase (ALT/SGPT) 22 U/L (14-59) Alkaline Phosphatase 54 U/L (46-116) Total Protein 7.3 g/dL (6.4-8.2) Albumin 3.7 g/dL (3.4-5.0) Albumin/Globulin Ratio 1.0 (1.0-1.7) Laboratory Tests Test 10/11/16 08:50 White Blood Count 9.2 x10^3/uL (4.0-11.0) Red Blood Count 4.17 x10^6/uL (3.50-5.40) Hemoglobin 13.5 g/dL (12.0-15.5) Hematocrit 40.2 % (36.0-47.0) Mean Corpuscular Volume 97 fL (79-100) Mean Corpuscular Hemoglobin 32 pg (25-35) Mean Corpuscular Hemoglobin Concent 34 g/dL (31-37) Red Cell Distribution Width 13.5 % (11.5-14.5) Platelet Count 151 x10^3/uL (140-400) Neutrophils (%) (Auto) 89 % (31-73) Lymphocytes (%) (Auto) 5 % (24-48) Monocytes (%) (Auto) 5 % (0-9) Eosinophils (%) (Auto) 1 % (0-3) Basophils (%) (Auto) 0 % (0-3) Neutrophils # (Auto) 8.1 x10^3uL (1.8-7.7) Lymphocytes # (Auto) 0.5 x10^3/uL (1.0-4.8) Monocytes # (Auto) 0.4 x10^3/uL (0.0-1.1) Eosinophils # (Auto) 0.1 x10^3/uL (0.0-0.7) Basophils # (Auto) 0.0 x10^3/uL (0.0-0.2) Segmented Neutrophils % 93 % (35-66) Band Neutrophils % 2 % (0-9) Lymphocytes % 4 % (24-48) Eosinophils % 1 % (0-5) Platelet Estimate Adequate (ADEQUATE) Prothrombin Time 13.7 SEC (11.7-14.0) Prothromb Time International Ratio 1.1 (0.8-1.1) Sodium Level 139 mmol/L (136-145) Potassium Level 3.6 mmol/L (3.5-5.1) Chloride Level 104 mmol/L (98-107) Carbon Dioxide Level 23 mmol/L (21-32) Anion Gap 12 (6-14) Blood Urea Nitrogen 10 mg/dL (7-20) Creatinine 1.1 mg/dL (0.6-1.0) Estimated GFR (Cockcroft-Gault) 56.2 BUN/Creatinine Ratio 9 (6-20) Glucose Level 87 mg/dL (70-99) Calcium Level 8.1 mg/dL (8.5-10.1) Total Bilirubin 0.2 mg/dL (0.2-1.0) Aspartate Amino Transf (AST/SGOT) 24 U/L (15-37) Alanine Aminotransferase (ALT/SGPT) 22 U/L (14-59) Alkaline Phosphatase 54 U/L (46-116) Total Protein 7.3 g/dL (6.4-8.2) Albumin 3.7 g/dL (3.4-5.0) Albumin/Globulin Ratio 1.0 (1.0-1.7) ZWIBELMAN,MIRIAN S MD Oct 11, 2016 18:54
[2016-10-11 19:00] VITALS: BP_SYST 100; BP_SYST 105; BP_DIAS 48; BP_DIAS 57
[2016-10-11] MEDS ORDERED: IV NORMAL SALINE 500ML BAG 500 ML IV ONE (19:00)
--- NOTE | 2016-10-11 19:44 | HP ---
ADMIT DATE: 10/11/2016 CHIEF COMPLAINT: Seizure. HISTORY OF PRESENT ILLNESS: The patient is a pleasant 36-year-old female who is on 3 seizure meds. She apparently skipped the dose in the past day or two, now she has had another seizure. I discussed the case with the ER physician. We are going to admit the patient and consult Neurology. PAST MEDICAL HISTORY: Seizure disorder, recent left leg fracture. ALLERGIES: None. FAMILY HISTORY: Seizure. SOCIAL HISTORY: She does not drink, smoke, or take drugs. MEDICATIONS: Reviewed, please refer the MRAD. REVIEW OF SYSTEMS: Unobtainable, the patient is postictal. PHYSICAL EXAMINATION: VITAL SIGNS: Stable. GENERAL: She is sleeping. She awakens not a little bit, but seems a little confused. HEART: Distant S1, S2. LUNGS: Clear. ABDOMEN: Soft. EXTREMITIES: No edema. SKIN: No rashes. ENDOCRINE: No thyromegaly. LYMPHATICS: No cervical nodes. HEMATOPOIETIC: No bruising. EXTREMITIES: The left leg is in a cast, she broke it a couple days ago. ASSESSMENT AND PLAN: Resolving [id number] seizures with the postictal state. The patient has been admitted, we will consult Dr. Moore. We will try to resume the home medicines, IV fluids, hope to discharge tomorrow. KINGSLEY CROW DO DR: PAPO/lo JOB#: [id number] / [id number]
[2016-10-11] MEDS: lamoTRIgine 100 MG TABLET. PO SCH (20:26)
[2016-10-11] MEDS: levETIRAcetam 500 MG TABLET PO SCH (20:26)
[2016-10-11 23:00] VITALS: BP 103/50
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
[2016-10-12 03:00] VITALS: BP 98/42
--- NOTE | 2016-10-12 05:17 | ACF ---
Admission Forms Criteria SEIZURE Clinical Indications for Admission to Inpatient Care (Place 'X' for any and all applicable criteria): Admission is indicated for seizure and ANY ONE of the following(1)(2)(3)(4)(5): [ X]I. Inpatient admission required rather than observation care (Also use Seizure: Observation Care Criteria as appropriate) because of ANY ONE of the following: [ ]a) Altered mental status that is severe or persistent [ ]b) New focal neurologic deficit that is severe or persistent [ ]c) Metabolic disorder (eg, hypoglycemia, hyponatremia) that is severe or persistent [X ]d) Recurrent seizure [ ]e) Outpatient antiseizure regimen cannot be established (eg , patient cannot tolerate medication, initiation requires inpatient care) [ ]f) Need for ongoing intravenous infusion of antiseizure medication [ ]g) Cardiac arrhythmias of immediate concern [ ]h) Cerebral bleeding, hydrocephalus, or vasospasm monitoring (14) [ ]i) Increased intracranial pressure or cerebral edema monitoring (15) [ ]j) Other treatment or monitoring requiring inpatient admission [ ]II. Status epilepticus [A] or repetitive seizures not controlled with emergent treatment (6)(8) [ ]III. Brain disorder (eg, tumor, edema, and hydrocephalus) that requiring monitoring or intervention available only at inpatient level of care. [ ]IV. Brain insult (eg, severe trauma, stroke, drug toxicity, or withdrawal) that requires monitoring or intervention available only at inpatient level of care (10)(11) Extended stay beyond goal length of stay may be needed for (22) [ ]a) Complications of status epilepticus [ ]b) Refractory status epilepticus [ ]c) Etiology-specific therapy for conditions such as MEDIC TECHNICIAN infection, head injury,eclampsia, severe metabolic abnormalities, and brain tumor [ ]d) Residual neurologic damage, [ ]e) Initiation of significant change to anticonvulsant treatment [ ]f) Older patients (65 years or older) [ ]g) Patient requiring intubation (eg, to protect airway) The original [employer] content created by [employer] has been revised. The portions of the content which have been revised are identified through the use of italic text or in bold, and [facility] [employer] has neither reviewed nor approved the modified material. All other unmodified content is copyright [facility] [employer]. Please see references footnoted in the original [facility] edition 2016 Admission Criteria Met?: Yes JVOANNY WYMAN Oct 12, 2016 05:17
[2016-10-12 06:54] VITALS: BP 101/37
[2016-10-12] MEDS: ONFI 10 MG PO SCH (08:00)
[2016-10-12] MEDS: HYDROcodone/APAP 5/325MG 1 TAB TABLET PO PRN (09:04)
[2016-10-12] MEDS: levETIRAcetam 500 MG TABLET PO SCH ×2 (09:04→21:11)
[2016-10-12] MEDS: lamoTRIgine 100 MG TABLET. PO SCH ×2 (09:04→21:11)
[2016-10-12 10:57] VITALS: BP 101/45
[2016-10-12 14:49] VITALS: BP 96/37
--- NOTE | 2016-10-12 15:11 | PDOC ---
PROGRESS NOTES Chief Complaint Chief Complaint 1. Longstanding seizure disorder 2. Leiden factor V mutation. 3. Lupus. 4. History of . 5. Tubal ligation. right leg and left foot traumatic fx plan: fu with neuro, ortho cont 3 seizure meds, this hosp has no omfi here, ativan prn make sure with ortho if need sx? likely not pt supposed to fu with dr. Liu as outpt according to nurse, but pt personally has no idea how ptot dvt ppx hope dc tmr History of Present Illness History of Present Illness right foot has splint no seizure x24h feels ok Vitals Vitals Vital Signs Date Time Temp Pulse Resp B/P (MAP) Pulse Ox O2 Delivery O2 Flow Rate FiO2 10/12/16 14:49 98.1 76 17 96/37 (56) 97 Room Air 98.1 10/11/16 18:28 4.0 Physical Exam Physical Exam right leg has splint General: Alert, Oriented X3, Cooperative Heart: Regular rate Lungs: Clear Abdomen: Normal bowel sounds, Soft Extremities: No clubbing, No cyanosis Review of Systems Review of Systems no fever, chills, sob or chest pain Assessment and Plan Assessmemt and Plan Problems Medical Problems: (1) Altered mental status Status: Acute (2) Seizure Status: Acute Problems: Comment Review of Relevant I have reviewed the following items demond (where applicable) has been applied. Labs Laboratory Tests Test 10/11/16 08:50 White Blood Count 9.2 x10^3/uL (4.0-11.0) Red Blood Count 4.17 x10^6/uL (3.50-5.40) Hemoglobin 13.5 g/dL (12.0-15.5) Hematocrit 40.2 % (36.0-47.0) Mean Corpuscular Volume 97 fL (79-100) Mean Corpuscular Hemoglobin 32 pg (25-35) Mean Corpuscular Hemoglobin Concent 34 g/dL (31-37) Red Cell Distribution Width 13.5 % (11.5-14.5) Platelet Count 151 x10^3/uL (140-400) Neutrophils (%) (Auto) 89 % (31-73) Lymphocytes (%) (Auto) 5 % (24-48) Monocytes (%) (Auto) 5 % (0-9) Eosinophils (%) (Auto) 1 % (0-3) Basophils (%) (Auto) 0 % (0-3) Neutrophils # (Auto) 8.1 x10^3uL (1.8-7.7) Lymphocytes # (Auto) 0.5 x10^3/uL (1.0-4.8) Monocytes # (Auto) 0.4 x10^3/uL (0.0-1.1) Eosinophils # (Auto) 0.1 x10^3/uL (0.0-0.7) Basophils # (Auto) 0.0 x10^3/uL (0.0-0.2) Segmented Neutrophils % 93 % (35-66) Band Neutrophils % 2 % (0-9) Lymphocytes % 4 % (24-48) Eosinophils % 1 % (0-5) Platelet Estimate Adequate (ADEQUATE) Prothrombin Time 13.7 SEC (11.7-14.0) Prothromb Time International Ratio 1.1 (0.8-1.1) Sodium Level 139 mmol/L (136-145) Potassium Level 3.6 mmol/L (3.5-5.1) Chloride Level 104 mmol/L (98-107) Carbon Dioxide Level 23 mmol/L (21-32) Anion Gap 12 (6-14) Blood Urea Nitrogen 10 mg/dL (7-20) Creatinine 1.1 mg/dL (0.6-1.0) Estimated GFR (Cockcroft-Gault) 56.2 BUN/Creatinine Ratio 9 (6-20) Glucose Level 87 mg/dL (70-99) Calcium Level 8.1 mg/dL (8.5-10.1) Total Bilirubin 0.2 mg/dL (0.2-1.0) Aspartate Amino Transf (AST/SGOT) 24 U/L (15-37) Alanine Aminotransferase (ALT/SGPT) 22 U/L (14-59) Alkaline Phosphatase 54 U/L (46-116) Total Protein 7.3 g/dL (6.4-8.2) Albumin 3.7 g/dL (3.4-5.0) Albumin/Globulin Ratio 1.0 (1.0-1.7) Medications Current Medications Levetiracetam 500 mg/Sodium Chloride 100 ml @ 400 mls/hr 1X ONCE IV ; Start at 08:15; Stop 10/11/16 at 08:22; Status DC Levetiracetam 1000 mg/Sodium Chloride 110 ml @ 440 mls/hr 1X ONCE IV Last administered on 10/11/16 08:38; Start 10/11/16 at 08:30; Stop 10/11/16 at 08:44 ; Status DC Acetaminophen/ Hydrocodone Bitart (Lortab 5/325) 1 tab 1X ONCE PO Last administered on 10/11/16 10:45; Start 10/11/16 at 10:45; Stop 10/11/16 at 10:46 ; Status DC Levetiracetam (Keppra) 500 mg BID PO Last administered on 10/12/16 09:04; Start 10/11/16 at 21:00 Lamotrigine (LaMICtal) 100 mg BID PO Last administered on 10/12/16 09:04; Start 10/11/16 at 21:00 Non-Formulary Medication 1 ea DAILY08 PO ; Start 10/12/16 at 08:00; Status UNV Sodium Chloride 500 ml @ 500 mls/hr 1X ONCE IV Last administered on 18:29; Start 10/11/16 at 19:00; Stop 10/11/16 at 19:59; Status DC Acetaminophen/ Hydrocodone Bitart (Lortab 5/325) 1 tab PRN Q4HRS PRN PO PAIN Last administered on 10/12/16 09:04; Start 10/11/16 at 18:30 Active Scripts Active Ibuprofen 400 Mg Tablet 400 Mg PO PRN Q6HRS PRN 7 Days [place] 5-325 Tablet (Acetaminophen/Hydrocodone Bitart) 1 Each Tablet 1 Tab PO PRN Q6HRS PRN 16 Days Lamictal (Lamotrigine) 100 Mg Tablet 1 Tab PO BID Reported Celexa (Citalopram Hydrobromide) 20 Mg Tablet 1 Tab PO DAILY Onfi (Clobazam) 10 Mg Tablet 10 Mg PO Vitals/I & O Vital Sign - Last 24 Hours 10/11/16 10/11/16 10/11/16 10/11/16 18:28 19:00 20:00 23:00 Temp 98.7 98.9 98.7 98.9 Pulse 77 75 Resp 17 18 B/P (MAP) 100/57 (71) 103/50 (67) Pulse Ox 98 98 96 O2 Delivery Room Air Room Air Room Air Room Air O2 Flow Rate 4.0 10/12/16 10/12/16 10/12/16 10/12/16 03:00 06:54 08:00 09:04 Temp 98.8 98.5 98.8 98.5 Pulse 73 90 Resp 18 B/P (MAP) 98/42 (60) 101/37 (58) Pulse Ox 95 97 O2 Delivery Room Air Room Air Room Air Room Air 10/12/16 10/12/16 10:57 14:49 Temp 98.6 98.1 98.6 98.1 Pulse 86 76 Resp B/P (MAP) 101/45 (63) 96/37 (56) Pulse Ox 96 97 O2 Delivery Room Air Room Air Intake and Output 10/11/16 10/11/16 10/12/16 15:00 23:00 07:00 Intake Total 110 ml 0 ml 150 ml Output Total 300 ml Balance 110 ml 0 ml -150 ml MARY KAY ORONA MD Oct 12, 2016 15:11
[2016-10-12] MEDS ORDERED: DOCUSATE SODIUM 100 MG CAPSULE. PO PRN (15:15)
[2016-10-12] MEDS ORDERED: MORPHINE SULFATE 2 MG/ML DISP.SYRIN. IV PRN (15:15)
[2016-10-12] MEDS ORDERED: traMADol 50 MG TABLET PO PRN (15:15)
[2016-10-12] MEDS ORDERED: ACETAMINOPHEN 325 MG TABLET. PO PRN (15:15)
[2016-10-12] MEDS ORDERED: ONDANSETRON PF 4 MG/2 ML VIAL. IV PRN (15:15)
[2016-10-12] MEDS ORDERED: hydrALAZINE 20 MG/ML VIAL. IVP PRN (15:15)
[2016-10-12] MEDS ORDERED: LEVE500T6 PO (17:06)
[2016-10-12] MEDS ORDERED: WARF5TAB7 PO (17:06)
[2016-10-12] MEDS ORDERED: CYCL10TA2 PO (17:06)
[2016-10-12] MEDS: ENOXAPARIN 40 MG/0.4 ML SYRINGE. SQ SCH (18:06)
--- NOTE | 2016-10-12 18:09 | PDOC ---
PROGRESS NOTES Assessment Assessment IMPRESSION: Seizure or seizure like episodes. Acute right distal fibular and left 5th metatarsal bone fractures. Hx of lupus. Hx of Factor V Leiden mutation. RECOMMENDATIONS/PLAN: EEG Continue Keppra. Lab: see orders. Treat medic diseases. SUBJECTIVE: Doing fine. OBJECTIVE: No seizures since in the hospital. PAST MEDICAL HISTORY: 1. Longstanding seizure disorder. 2. Leiden factor V mutation. 3. Lupus. 4. History of . 5. Tubal ligation. ALLERGIES: SULFA. MEDICATIONS: Prior to admission, hydrocodone/acetaminophen every 6 hours as needed, which was just for the fracture, citalopram 20 mg, clobazam 10 mg, ibuprofen 400 mg every 6 hours as needed, lamotrigine 100 mg twice per day, Keppra 500 mg twice per day and there was a report of Coumadin on the Emergency Room report, but I do not think it is on the list in the computer. FAMILY HISTORY: Noncontributory. SOCIAL HISTORY: She has been with her boyfriend for 3-1/2 years. She does not smoke tobacco, but does smoke marijuana. She and her boyfriend have not smoked for a while because they were caught with the possession charge. She was using it because it seemed to help her epilepsy. She drinks alcohol on only rare occasions. She does smoke tobacco. REVIEW OF SYSTEMS: She does not have headache. There has been no change of vision or hearing. She has been able to eat and swallow. She does not have soreness of her tongue. She does not have shortness of breath, chest or abdominal pain. Does have bone and joint pain in both legs, the right more so than the left as this one was fractured. There has been no fever or rash. No gastrointestinal or genitourinary complaint. Does not complain of numbness. Does not have specific weakness other than what is limited by the fracture. Normally, her balance is good. She does have occasional breakthrough seizure. MEDICATIONS: Refer to [facility] PHYSICAL EXAMINATION: General appearance in subacute distress. HEENT: Normocephalic and nontraumatic. Eyes, nose, ears, and throat are unremarkable. Hearing decrease. Neck is supple. No lymphadenopathy. No bruits are heard over the carotid artery. No Crepitus. Cardiovascular: S1, S2, regular rate and rhythm. Pulmonary: Clear to auscultation bilaterally. Abdomen: Bowel sounds are positive. Abdomen is soft, nontender, and nondistended. Extremities: No rash, lesions, or edema. Restriction of range of motion in LE. NEUROLOGICAL EXAMINATION: Alert. Oriented to time, place and person. PERRL. EOMI. CN: no focal findings. Muscle tone: within normal. Muscle strength: 5 UE, 4-LE DTR: 2 Plantar reflex: Flexor response bilaterally Gait: Unable to walk at this time. Sensory exam: no abnormal findings. No acute cerebellar signs elicited. F-T-N test accurate. Objective Objective Vital Signs Date Time Temp Pulse Resp B/P (MAP) Pulse Ox O2 Delivery O2 Flow Rate FiO2 10/12/16 14:49 98.1 76 17 96/37 (56) 97 Room Air 98.1 10/11/16 18:28 4.0 Intake and Output 10/12/16 07:00 Intake Total 260 ml Output Total 300 ml Balance -40 ml Intake Oral 150 ml IV Total 110 ml Output Urine Total 300 ml Vitals Signs Vitals VS - Last 72 Hours, by Label Date Time Temp Pulse Resp B/P (MAP) Pulse Ox O2 Delivery O2 Flow Rate FiO2 10/12/16 14:49 98.1 76 17 96/37 (56) 97 Room Air 98.1 10/12/16 10:57 98.6 86 17 101/45 (63) 96 Room Air 98.6 10/12/16 10:04 Room Air 10/12/16 09:04 Room Air 10/12/16 08:00 Room Air 10/12/16 06:54 98.5 90 17 101/37 (58) 97 Room Air 98.5 10/12/16 03:00 98.8 73 18 98/42 (60) 95 Room Air 98.8 10/11/16 23:00 98.9 75 18 103/50 (67) 96 Room Air 98.9 10/11/16 20:00 Room Air 10/11/16 19:00 98.7 77 17 100/57 (71) 98 Room Air 98.7 10/11/16 18:28 98 Room Air 4.0 10/11/16 15:03 98.7 82 19 105/48 (67) 98 Room Air 98.7 10/11/16 11:58 Room Air 10/11/16 11:53 98.3 87 20 122/50 (74) 99 Room Air 98.3 10/11/16 11:52 98.3 87 20 122/50 (74) 99 Room Air 98.3 10/11/16 11:00 74 18 124/70 (88) 94 Room Air 10/11/16 09:09 82 18 132/76 (94) 99 Nasal Cannula 4.0 10/11/16 08:09 97.9 108 22 123/57 (79) 86 Room Air 97.9 Medication Medications Current Medications Acetaminophen (Tylenol) 650 mg PRN Q6HRS PRN PO FEVER; Start 10/12/16 at 15:15 Acetaminophen/ Hydrocodone Bitart (Lortab 5/325) 1 tab PRN Q4HRS PRN PO PAIN Last administered on 10/12/16 09:04; Start 10/11/16 at 18:30 Docusate Sodium (Colace) 100 mg PRN DAILY PRN PO CONSTIPATION; Start 10/12/16 at 15:15 Enoxaparin Sodium (Lovenox 40mg Syringe) 40 mg Q24H SQ ; Start 10/12/16 at 18:00 Hydralazine HCl (Apresoline) 10 mg PRN Q4HRS PRN IVP ELEVATED BP, SEE COMMENTS ; Start 10/12/16 at 15:15 Lamotrigine (LaMICtal) 100 mg BID PO Last administered on 10/12/16 09:04; Start 10/11/16 at 21:00 Levetiracetam (Keppra) 500 mg BID PO Last administered on 10/12/16 09:04; Start 10/11/16 at 21:00 Lorazepam (Ativan) 2 mg PRN Q4HRS PRN IV ANXIETY / AGITATION; Start 10/12/16 at 15:15 Morphine Sulfate 2 mg PRN Q2HR PRN IV PAIN; Start 10/12/16 at 15:15 Non-Formulary Medication 1 ea DAILY08 PO ; Start 10/12/16 at 08:00; Status UNV Ondansetron HCl (Zofran) 4 mg PRN Q6HRS PRN IV NAUSEA/VOMITING; Start 10/12/16 at 15:15 Sodium Chloride 500 ml @ 500 mls/hr 1X ONCE IV Last administered on 18:29; Start 10/11/16 at 19:00; Stop 10/11/16 at 19:59; Status DC Tramadol HCl (Ultram) 50 mg PRN Q6HRS PRN PO PAIN; Start 10/12/16 at 15:15 Comment Review of Relevant I have reviewed the following items demond (where applicable) has been applied. OVIDIO FABIAN MD Oct 12, 2016 18:09
[2016-10-12 19:17] VITALS: BP 104/41
[2016-10-12 21:22] LABS: BARBITURATES NEG (NEG); BENZODIAZEPINES POS (NEG); CANNABINOIDS NEG (NEG); COCAINE NEG (NEG); METHADONE NEG (NEG); OPIATES POS (NEG); PHENCYCLIDINE NEG (NEG)
[2016-10-12 22:47] VITALS: BP 95/53
[2016-10-13 02:36] VITALS: BP 110/58
[2016-10-13 04:21] LABS: BASO % 1 % (0-3); EOS % 3 % (0-3); HEMATOCRIT 35.2 % (36.0-47.0); LYMPH # 1.5 x10^3/uL (1.0-4.8); LYMPH % 33 % (24-48); MEAN CORPUSCULAR HEMOGLOBIN 33 pg (25-35); MEAN CORPUSCULAR HGB CONC 34 g/dL (31-37); MEAN CORPUSCULAR VOLUME 95 fL (79-100); MONO % 7 % (0-9); NEUT % 56 % (31-73); PLATELET COUNT 148 x10^3/uL (140-400); RED BLOOD COUNT 3.69 x10^6/uL (3.50-5.40); RED CELL DISTRIBUTION WIDTH 13.1 % (11.5-14.5); WHITE BLOOD COUNT 4.6 x10^3/uL (4.0-11.0)
[2016-10-13 04:48] LABS: CALCIUM 8.1 mg/dL (8.5-10.1); CREATININE 0.7 mg/dL (0.6-1.0); GFR 94.7; POTASSIUM 3.5 mmol/L (3.5-5.1)
[2016-10-13 07:25] VITALS: BP 101/36
[2016-10-13] MEDS: levETIRAcetam 500 MG TABLET PO SCH (07:53)
[2016-10-13] MEDS: lamoTRIgine 100 MG TABLET. PO SCH (07:54)
[2016-10-13] MEDS: HYDROcodone/APAP 5/325MG 1 TAB TABLET PO PRN ×2 (07:54→17:59)
[2016-10-13] MEDS: ONFI 10 MG PO SCH (07:54)
--- NOTE | 2016-10-13 08:08 | PDOC ---
ORTHO PROGRESS NOTES Vitals Vital Signs Date Time Temp Pulse Resp B/P (MAP) Pulse Ox O2 Delivery O2 Flow Rate FiO2 10/13/16 07:54 Room Air 10/13/16 07:25 98.3 73 17 101/36 (57) 97 98.3 10/12/16 20:00 4.0 Labs Laboratory Tests Test 10/11/16 08:50 10/12/16 20:57 10/13/16 02:50 White Blood Count 9.2 x10^3/uL (4.0-11.0) 4.6 x10^3/uL (4.0-11.0) Red Blood Count 4.17 x10^6/uL (3.50-5.40) 3.69 x10^6/uL (3.50-5.40) Hemoglobin 13.5 g/dL (12.0-15.5) 12.0 g/dL (12.0-15.5) Hematocrit 40.2 % (36.0-47.0) 35.2 % (36.0-47.0) Mean Corpuscular Volume 97 fL (79-100) 95 fL (79-100) Mean Corpuscular Hemoglobin 32 pg (25-35) 33 pg (25-35) Mean Corpuscular Hemoglobin Concent 34 g/dL (31-37) 34 g/dL (31-37) Red Cell Distribution Width 13.5 % (11.5-14.5) 13.1 % (11.5-14.5) Platelet Count 151 x10^3/uL (140-400) 148 x10^3/uL (140-400) Neutrophils (%) (Auto) 89 % (31-73) 56 % (31-73) Lymphocytes (%) (Auto) 5 % (24-48) 33 % (24-48) Monocytes (%) (Auto) 5 % (0-9) 7 % (0-9) Eosinophils (%) (Auto) 1 % (0-3) 3 % (0-3) Basophils (%) (Auto) 0 % (0-3) 1 % (0-3) Neutrophils # (Auto) 8.1 x10^3uL (1.8-7.7) 2.6 x10^3uL (1.8-7.7) Lymphocytes # (Auto) 0.5 x10^3/uL (1.0-4.8) 1.5 x10^3/uL (1.0-4.8) Monocytes # (Auto) 0.4 x10^3/uL (0.0-1.1) 0.3 x10^3/uL (0.0-1.1) Eosinophils # (Auto) 0.1 x10^3/uL (0.0-0.7) 0.1 x10^3/uL (0.0-0.7) Basophils # (Auto) 0.0 x10^3/uL (0.0-0.2) 0.0 x10^3/uL (0.0-0.2) Segmented Neutrophils % 93 % (35-66) Band Neutrophils % 2 % (0-9) Lymphocytes % 4 % (24-48) Eosinophils % 1 % (0-5) Platelet Estimate Adequate (ADEQUATE) Prothrombin Time 13.7 SEC (11.7-14.0) Prothromb Time International Ratio 1.1 (0.8-1.1) Sodium Level 139 mmol/L (136-145) 140 mmol/L (136-145) Potassium Level 3.6 mmol/L (3.5-5.1) 3.5 mmol/L (3.5-5.1) Chloride Level 104 mmol/L (98-107) 105 mmol/L (98-107) Carbon Dioxide Level 23 mmol/L (21-32) 27 mmol/L (21-32) Anion Gap 12 (6-14) 8 (6-14) Blood Urea Nitrogen 10 mg/dL (7-20) 6 mg/dL (7-20) Creatinine 1.1 mg/dL (0.6-1.0) 0.7 mg/dL (0.6-1.0) Estimated GFR (Cockcroft-Gault) 56.2 94.7 BUN/Creatinine Ratio 9 (6-20) Glucose Level 87 mg/dL (70-99) 100 mg/dL (70-99) Calcium Level 8.1 mg/dL (8.5-10.1) 8.1 mg/dL (8.5-10.1) Total Bilirubin 0.2 mg/dL (0.2-1.0) Aspartate Amino Transf (AST/SGOT) 24 U/L (15-37) Alanine Aminotransferase (ALT/SGPT) 22 U/L (14-59) Alkaline Phosphatase 54 U/L (46-116) Total Protein 7.3 g/dL (6.4-8.2) Albumin 3.7 g/dL (3.4-5.0) Albumin/Globulin Ratio 1.0 (1.0-1.7) Urine Opiates Screen Pos (NEG) Urine Methadone Screen Neg (NEG) Urine Barbiturates Neg (NEG) Urine Phencyclidine Screen Neg (NEG) Urine Amphetamine/Methamphetamine Neg (NEG) Urine Benzodiazepines Screen Pos (NEG) Urine Cocaine Screen Neg (NEG) Urine Cannabinoids Screen Neg (NEG) Urine Ethyl Alcohol Neg (NEG) Laboratory Tests Test 10/12/16 20:57 10/13/16 02:50 Urine Opiates Screen Pos (NEG) Urine Methadone Screen Neg (NEG) Urine Barbiturates Neg (NEG) Urine Phencyclidine Screen Neg (NEG) Urine Amphetamine/Methamphetamine Neg (NEG) Urine Benzodiazepines Screen Pos (NEG) Urine Cocaine Screen Neg (NEG) Urine Cannabinoids Screen Neg (NEG) Urine Ethyl Alcohol Neg (NEG) White Blood Count 4.6 x10^3/uL (4.0-11.0) Red Blood Count 3.69 x10^6/uL (3.50-5.40) Hemoglobin 12.0 g/dL (12.0-15.5) Hematocrit 35.2 % (36.0-47.0) Mean Corpuscular Volume 95 fL (79-100) Mean Corpuscular Hemoglobin 33 pg (25-35) Mean Corpuscular Hemoglobin Concent 34 g/dL (31-37) Red Cell Distribution Width 13.1 % (11.5-14.5) Platelet Count 148 x10^3/uL (140-400) Neutrophils (%) (Auto) 56 % (31-73) Lymphocytes (%) (Auto) 33 % (24-48) Monocytes (%) (Auto) 7 % (0-9) Eosinophils (%) (Auto) 3 % (0-3) Basophils (%) (Auto) 1 % (0-3) Neutrophils # (Auto) 2.6 x10^3uL (1.8-7.7) Lymphocytes # (Auto) 1.5 x10^3/uL (1.0-4.8) Monocytes # (Auto) 0.3 x10^3/uL (0.0-1.1) Eosinophils # (Auto) 0.1 x10^3/uL (0.0-0.7) Basophils # (Auto) 0.0 x10^3/uL (0.0-0.2) Sodium Level 140 mmol/L (136-145) Potassium Level 3.5 mmol/L (3.5-5.1) Chloride Level 105 mmol/L (98-107) Carbon Dioxide Level 27 mmol/L (21-32) Anion Gap 8 (6-14) Blood Urea Nitrogen 6 mg/dL (7-20) Creatinine 0.7 mg/dL (0.6-1.0) Estimated GFR (Cockcroft-Gault) 94.7 Glucose Level 100 mg/dL (70-99) Calcium Level 8.1 mg/dL (8.5-10.1) Assessment and Plan L 5th metatarsal fx, ok to WBAT in post-op shoe R distal fibula fx, mobilize as selena in CAM and follow-up Xrays to determine if surgery needed SUSIE LEAVITT II, MD Oct 13, 2016 08:08
--- NOTE | 2016-10-13 11:44 | CONS ---
DATE OF CONSULTATION: 10/13/2016 REFERRING PROVIDER: Dr. Montoya. CONSULTING PROVIDER: Reji Rajput MD REASON FOR CONSULTATION: Bilateral foot and ankle fractures. HISTORY OF PRESENT ILLNESS: The patient is a very pleasant 36-year-old female with a longstanding seizure disorder with recent seizure activity, which prompted her admission to the hospital who had a fall on Wednesday injuring both of her feet and ankles. Prior to this, she denies any foot or ankle pain or problems. She tells me her left foot hurts on the outside and her right ankle hurts on the outside. Both of these pains radiate proximally to the waist. They are worse with ambulation and better with rest. She has been off of them and has not attempted to weightbear since the injuries. She denies pain anywhere else. PAST MEDICAL HISTORY: Factor V deficiency, seizure disorder, lupus. PAST SURGICAL HISTORY: , tubal ligation. SOCIAL HISTORY: Uses alcohol occasionally. Does use marijuana. REVIEW OF SYSTEMS: Twelve point review of systems negative except as per HPI. ALLERGIES: None. MEDICATIONS: Reviewed. Please see MRAD. PHYSICAL EXAMINATION: GENERAL: The patient is alert and oriented. No acute distress. Mood and affect are appropriate. She is examined in the hospital bed. HEENT: Head is normocephalic, atraumatic. Extraocular muscles are intact. CARDIOVASCULAR: Regular rate and rhythm. LUNGS: Respirations are unlabored with symmetric chest rise. EXTREMITIES: Examination of her lower extremities reveals dorsalis pedis 2+ and symmetric. Toes are warm. She can wiggle her toes. She has ecchymosis over her lateral left foot and lateral right ankle. She is tender at these areas. No tenderness at her knees. IMAGING: X-rays from prior were interpreted by myself. Reports were also reviewed. She has a minimally displaced left proximal fifth metatarsal fracture, pseudo-Patrick. She also has a minimally displaced right distal fibular fracture with no shift in the mortise. Incidentally both of her talar dome show some osteochondral lesions as well. IMPRESSION: 1. Closed right distal fibular fracture. 2. Closed left proximal fifth metatarsal fracture. 3. Talar dome lesions, incidental. PLAN: I did discuss with her that the left foot fracture should heal and postop shoe would probably help. I did also discuss with her that we do need to stress her ankle fracture a little bit in the form of ambulating with assistance in a CAM boot on the right side. I gave her prescription of and asked the nurse to call [facility] [facility] to try to get this set up today. We will take repeat x-rays after she has been weightbearing on her right ankle to determine if there is any talar shift and subsequent need for surgery. REJI RAJPUT MD DR: ALIREZA/lo JOB#: [id number] / [id number] ESTELA
--- NOTE | 2016-10-13 12:57 | PDOC3 ---
Discharge Summary [facility] Date of Admission: Oct 11, 2016 Discharge Date: Oct 13, 2016 Admitting Diagnosis 1. Longstanding seizure disorder 2. Leiden factor V mutation on warfarin 3. Lupus. 4. History of . 5. Tubal ligation. right distal fibula fx and left 5th metatarsal traumatic fx Problems: Final Diagnosis CONSULTS ortho neuro Brief Hospital Course Ms. Ragland is a 36 old F, with long standing seizure disorder and disability, came for seizure. SHE FEll on Wednesday , missing steps of stair and came to ER. ER found she had leg and foot fx and dc her home with only right leg splint wo telling her the instruction to follow with any ortho. pt missed her seizure meds that day and came back to ER for seizure. no seizure in hosp. cont home 3 anti seizure meds, EEG pending. ortho consulted, left foot can do WBAT WITH post op boot, right leg can ambulate as tolerated and repeat xr in 2 days and decide to sx or not dc home if no other intervention. dc time 40min Physical Exam General: Alert, Oriented X3, Cooperative Heart: Regular rate Lungs: Clear Abdomen: Normal bowel sounds, Soft Extremities: No clubbing, No cyanosis Problems: Disposition home CONDITION AT DISCHARGE: Improved Diet regular Scheduled Citalopram Hydrobromide (Celexa), 1 TAB PO DAILY, (Reported) Lamotrigine (Lamictal), 1 TAB PO BID Levetiracetam (Levetiracetam), 500 MG PO BID, (Reported) Warfarin Sodium (Warfarin Sodium), 2 TAB PO DAILY, (Reported) Warfarin Sodium (Warfarin Sodium), 1.5 TAB PO DAILY, (Reported) Scheduled PRN Hydrocodone/Apap 5-325 ([place] 5-325 Tablet), 1 TAB PO PRN Q6HRS PRN for PAIN Miscellaneous Medications Clobazam (Onfi), 10 MG PO, (Reported) Discontinued Medications Cyclobenzaprine Hcl (Cyclobenzaprine Hcl), 1 TAB PO TID PRN for MUSCLE SPASMS, ( Reported) Ibuprofen (Ibuprofen), 400 MG PO PRN Q6HRS PRN for PAIN Follow Up ortho in 2 weeks MARY KAY ORONA MD Oct 13, 2016 12:57
[2016-10-13 14:43] VITALS: BP 97/38
--- NOTE | 2016-10-13 15:24 | PDOC ---
PROGRESS NOTES Assessment Assessment Seizure or seizure like episodes. Acute right distal fibular and left 5th metatarsal bone fractures. Hx of lupus. Hx of Factor V Leiden mutation. RECOMMENDATIONS/PLAN: Continue Keppra. Treat medic and surgical diseases. FU with PCP. FU with neurology in 1-2 months. EEG on 10/13/16: Normal. SUBJECTIVE: Doing fine. OBJECTIVE: No seizures since in the hospital. PAST MEDICAL HISTORY: 1. Longstanding seizure disorder. 2. Leiden factor V mutation. 3. Lupus. 4. History of . 5. Tubal ligation. ALLERGIES: SULFA. MEDICATIONS: Prior to admission, hydrocodone/acetaminophen every 6 hours as needed, which was just for the fracture, citalopram 20 mg, clobazam 10 mg, ibuprofen 400 mg every 6 hours as needed, lamotrigine 100 mg twice per day, Keppra 500 mg twice per day and there was a report of Coumadin on the Emergency Room report, but I do not think it is on the list in the computer. FAMILY HISTORY: Noncontributory. SOCIAL HISTORY: She has been with her boyfriend for 3-1/2 years. She does not smoke tobacco, but does smoke marijuana. She and her boyfriend have not smoked for a while because they were caught with the possession charge. She was using it because it seemed to help her epilepsy. She drinks alcohol on only rare occasions. She does smoke tobacco. REVIEW OF SYSTEMS: She does not have headache. There has been no change of vision or hearing. She has been able to eat and swallow. She does not have soreness of her tongue. She does not have shortness of breath, chest or abdominal pain. Does have bone and joint pain in both legs, the right more so than the left as this one was fractured. There has been no fever or rash. No gastrointestinal or genitourinary complaint. Does not complain of numbness. Does not have specific weakness other than what is limited by the fracture. Normally, her balance is good. She does have occasional breakthrough seizure. MEDICATIONS: Refer to [facility] PHYSICAL EXAMINATION: General appearance in subacute distress. HEENT: Normocephalic and nontraumatic. Eyes, nose, ears, and throat are unremarkable. Hearing decrease. Neck is supple. No lymphadenopathy. No bruits are heard over the carotid artery. No Crepitus. Cardiovascular: S1, S2, regular rate and rhythm. Pulmonary: Clear to auscultation bilaterally. Abdomen: Bowel sounds are positive. Abdomen is soft, nontender, and nondistended. Extremities: No rash, lesions, or edema. Restriction of range of motion in LE. NEUROLOGICAL EXAMINATION: Alert. Oriented to time, place and person. PERRL. EOMI. CN: no focal findings. Muscle tone: within normal. Muscle strength: 5 UE, 4-LE due to fracture. DTR: 2 Plantar reflex: Flexor response bilaterally Gait: Able to walk slowly at this time. Sensory exam: no abnormal findings. No acute cerebellar signs elicited. F-T-N test accurate. Objective Objective Vital Signs Date Time Temp Pulse Resp B/P (MAP) Pulse Ox O2 Delivery O2 Flow Rate FiO2 10/13/16 14:43 98.0 72 17 97/38 (57) 99 Room Air 98.0 10/12/16 20:00 4.0 Intake and Output 10/13/16 07:00 Intake Total 1040 ml Output Total 1750 ml Balance -710 ml Intake Oral 1040 ml Output Urine Total 1750 ml # Bowel Movements 1 Vitals Signs Vitals VS - Last 72 Hours, by Label Date Time Temp Pulse Resp B/P (MAP) Pulse Ox O2 Delivery O2 Flow Rate FiO2 10/13/16 14:43 98.0 72 17 97/38 (57) 99 Room Air 98.0 10/13/16 09:03 Room Air 10/13/16 08:00 Room Air 10/13/16 07:54 Room Air 10/13/16 07:25 98.3 73 17 101/36 (57) 97 Room Air 98.3 10/13/16 02:36 98.2 70 18 110/58 (75) 99 Room Air 98.2 10/12/16 22:47 98.5 83 18 95/53 (67) 99 Room Air 98.5 10/12/16 20:00 Room Air 4.0 10/12/16 19:57 Room Air 10/12/16 19:17 98.2 75 18 104/41 (62) 100 Room Air 98.2 10/12/16 14:49 98.1 76 17 96/37 (56) 97 Room Air 98.1 10/12/16 10:57 98.6 86 17 101/45 (63) 96 Room Air 98.6 7/31/17 09:04 Room Air 10/12/16 08:00 Room Air Laboratory Laboratory Laboratory Tests Test 10/12/16 20:57 10/13/16 02:50 Urine Opiates Screen Pos (NEG) Urine Methadone Screen Neg (NEG) Urine Barbiturates Neg (NEG) Urine Phencyclidine Screen Neg (NEG) Urine Amphetamine/Methamphetamine Neg (NEG) Urine Benzodiazepines Screen Pos (NEG) Urine Cocaine Screen Neg (NEG) Urine Cannabinoids Screen Neg (NEG) Urine Ethyl Alcohol Neg (NEG) White Blood Count 4.6 x10^3/uL (4.0-11.0) Red Blood Count 3.69 x10^6/uL (3.50-5.40) Hemoglobin 12.0 g/dL (12.0-15.5) Hematocrit 35.2 % (36.0-47.0) Mean Corpuscular Volume 95 fL (79-100) Mean Corpuscular Hemoglobin 33 pg (25-35) Mean Corpuscular Hemoglobin Concent 34 g/dL (31-37) Red Cell Distribution Width 13.1 % (11.5-14.5) Platelet Count 148 x10^3/uL (140-400) Neutrophils (%) (Auto) 56 % (31-73) Lymphocytes (%) (Auto) 33 % (24-48) Monocytes (%) (Auto) 7 % (0-9) Eosinophils (%) (Auto) 3 % (0-3) Basophils (%) (Auto) 1 % (0-3) Neutrophils # (Auto) 2.6 x10^3uL (1.8-7.7) Lymphocytes # (Auto) 1.5 x10^3/uL (1.0-4.8) Monocytes # (Auto) 0.3 x10^3/uL (0.0-1.1) Eosinophils # (Auto) 0.1 x10^3/uL (0.0-0.7) Basophils # (Auto) 0.0 x10^3/uL (0.0-0.2) Sodium Level 140 mmol/L (136-145) Potassium Level 3.5 mmol/L (3.5-5.1) Chloride Level 105 mmol/L (98-107) Carbon Dioxide Level 27 mmol/L (21-32) Anion Gap 8 (6-14) Blood Urea Nitrogen 6 mg/dL (7-20) Creatinine 0.7 mg/dL (0.6-1.0) Estimated GFR (Cockcroft-Gault) 94.7 Glucose Level 100 mg/dL (70-99) Calcium Level 8.1 mg/dL (8.5-10.1) Medication Medications Current Medications Enoxaparin Sodium (Lovenox 40mg Syringe) 40 mg Q24H SQ Last administered on t 18:06; Start 10/12/16 at 18:00 Comment Review of Relevant I have reviewed the following items demond (where applicable) has been applied. OVIDIO FABIAN MD Oct 13, 2016 15:24
--- NOTE | 2016-10-13 15:33 | EEG ---
DATE OF SERVICE: 10/13/2016 EEG NUMBER: [id number]. OBJECTIVE: This is a 36-year-old female patient with history of seizure. EEG was requested to evaluate seizure activity. METHOD: Twenty electrodes were applied according to the international 10-20 electrode placement system. EKG monitoring, hyperventilation, intermittent photic stimulation, monopolar and bipolar montages are routinely utilized. The record was obtained on a digital system with video monitoring. MEDICATION: Keppra, Onfi. FINDINGS: 1. Background: The patient was recorded in the awake and drowsy states. No actual sleep state was recorded. The overall background amplitude is 10-30 microvolts. A posterior dominant rhythm of 8-9 Hz is observed. 2. abnormalities: No specific epileptiform discharge or electrographic seizure is seen. More show artifact noted. 3. Activation: Hyperventilation was performed with good efforts and normal response. Intermittent photic stimulation was performed with photic driving. No specific epileptiform discharge or electrographic seizure induced by hyperventilation or intermittent photic stimulation. IMPRESSION: This EEG is a normal study for the awake and drowsy states. No actual sleep state was recorded. No focal, lateralizing, or specific epileptiform discharges or electrographic seizure is seen. OVIDIO FABIAN MD DR: YOMI/lo JOB#: [id number] / [id number] ESTELA
[2016-10-13] MEDS: ENOXAPARIN 40 MG/0.4 ML SYRINGE. SQ SCH (17:46)
== END 2016-10-13 18:27 | disposition home or self-care (01) ==
LOC: ER 08:09 → 6 SOUTH 11:00
PROVIDERS: ADMIT Internal Medicine; ATTEND Internal Medicine
DX: G40.909 Epilepsy, unspecified, not intractable, without status epilepticus (principal); D68.51 Activated protein C resistance; M32.9 Systemic lupus erythematosus, unspecified; S82.831A Other fracture of upper and lower end of right fibula, initial encounter for closed fracture; S92.352A Displaced fracture of fifth metatarsal bone, left foot, initial encounter for closed fracture; D68.2 Hereditary deficiency of other clotting factors; F12.90 Cannabis use, unspecified, uncomplicated; F17.200 Nicotine dependence, unspecified, uncomplicated; W10.9XXA Fall (on) (from) unspecified stairs and steps, initial encounter; Y93.89 Activity, other specified; Y92.89 Other specified places as the place of occurrence of the external cause; Y99.8 Other external cause status; Z79.01 Long term (current) use of anticoagulants; Z79.899 Other long term (current) drug therapy
CPT/HCPCS: 36415; 70450; 80048; 80053; 80307; 85007; 85027; 85610; 95816; 96361; 96372; 96374; 97116; 97162; 99285; G0378; G8978; G8979; J1650; J1953; J7040; G0379; G0479

== ENCOUNTER → 2016-12-09 | Outpatient (CLI) | payer OTHER ==
[~2016-12-09] MED LIST changes: +CITA20TA9 PO; +CLOB10TA PO; +CYCL10TA2 PO; +LEVE500T6 PO; +WARF5TAB7 PO
--- NOTE | 2016-12-11 20:16 | EEG ---
DATE OF SERVICE: EEG DATE: 12/09/2016 to 12/10/2016 EEG NUMBER: [id number]. OBJECTIVE: This is a 36-year-old female patient with history of seizure. She reported that she had increased seizures in menstruation period. EEG was requested to evaluate her seizure activity. This is a long-term video EEG study on day 1 with a total video monitoring and EEG recording time of 24 hours from 12/09/2016 to 12/10/2016. METHODS: Twenty electrodes were applied according to the international 10-20 electrode placement system. EKG monitoring, hyperventilation, intermittent photic stimulation, monopolar and bipolar montages are routinely utilized. The record was obtained on a digital system with video monitoring. FINDINGS: 1. Background: The patient was recorded in the awake, drowsy, and sleep states. The overall background amplitude is 10-30 microvolts. A posterior dominant rhythm of 8-10 Hz is observed. 2. Abnormalities: No specific epileptiform discharge or electrographic seizure is seen. No focal or diffuse slowing. 3. Activation: Hyperventilation was performed with good efforts and normal response. Intermittent photic stimulation was performed with photic driving. Photoparoxysmal phenomena noted. No specific epileptiform discharge or electrographic seizure induced by hyperventilation or intermittent photic stimulation. IMPRESSION: This is a long-term video EEG study monitoring on day 1 with total video monitoring and EEG recording time of 24 hours from 12/09/2016 to 12/10/2016. This long-term video EEG monitoring is within the normal limits of the study for the awake, drowsy, and sleep states. No focal, lateralizing, specific epileptiform discharge or electrographic seizure is seen. OVIDIO FABIAN MD DR: YOMI/lo JOB#: [id number] / [id number] ESTELA
--- NOTE | 2016-12-11 21:31 | EEG ---
DATE OF SERVICE: 12/10/2016 EEG DATE: to 12/11/2016 EEG NUMBER: [id number] OBJECTIVE: This is a 36-year-old female patient with history of seizure. She reported that she had increased seizure during menstruation period. EEG was requested to evaluate her seizure activity. This is the day 2 long-term video EEG study with total video monitoring and EEG recording time of 24 hours and 4 minutes from 12/10/2016 to 12/11/2016. METHODS: Twenty electrodes were applied according to the international 10-20 electrode placement system. EKG monitoring, hyperventilation, intermittent photic stimulation, monopolar and bipolar montages are routinely utilized. The record was obtained on a digital system with video monitoring. FINDINGS: 1. Background: The patient was recorded in the awake, drowsy, and sleep states. The overall background amplitude is 20-30 microvolts. A posterior dominant rhythm of 8 Hz is observed. 2. Abnormalities: No specific epileptiform discharge or electrographic seizure is seen. No focal or diffuse slowing. 3. Activation: Hyperventilation was performed with good efforts and normal response. Intermittent photic stimulation was performed with photic driving. No specific epileptiform discharge or electrographic seizure induced by hyperventilation or intermittent photic stimulation. IMPRESSION: This is the day 2 long-term video EEG monitoring with total video monitoring and EEG recording time 24 hours and 4 minutes from 12/10/2016 to 12/11/2016. This long-term video EEG study monitoring is within the normal limits for the awake, drowsy, and sleep states. No focal, lateralizing, specific epileptiform discharge or electrographic seizure is seen. OVIDIO FABIAN MD DR: Chung JOB#: [id number] / [id number] ESTELA
== END | disposition home or self-care (01) ==
LOC: SLPLAB 05:48
PROVIDERS: ATTEND Psychiatry & Neurology Neurology
DX: R56.9 Unspecified convulsions (principal); R06.4 Hyperventilation
CPT/HCPCS: 95951

== ENCOUNTER 2017-02-16 15:14 | Emergency (ER) | payer OTHER ==
--- NOTE | 2017-02-16 16:08 | PHYS DOC ---
Past Medical History Past Medical History: Seizure Additional Past Medical Histor: Lupus, FACTOR V Past Surgical History: , Tubal ligation Alcohol Use: Occasionally Drug Use: Marijuana Adult General Chief Complaint Chief Complaint: SEIZURE HPI HPI Patient is a 36 year old with history of lupus, factor V deficiency and epilepsy who presents with 2 seizure episodes earlier today. Seizures were witnessed, self-limited described as tonic clonic and resolved spontaneously in less than 2 minutes. Patient denies tree injuring seizure episode and has had a brief postictal period. Patient reports mild headache, denies shortness of breath, nausea, recent illness or change in sleep pattern. Patient has recent medications changes. She has been on Lamictal 10 mg twice daily, Keppra 500 mg twice daily, and on the 10 mg daily but has recently missed her medications and has not been able to get a refill. Patient currently has appointment with her neurologist, Dr. Moore in the coming 2 weeks. No other acute symptoms or complaints. IV established by EMS. No medications given prior to ED arrival. ] Review of Systems Review of Systems His symptoms as per history of present illness. All other review symptoms are negative. All other systems were reviewed and found to be within normal limits, except as documented in this note. Current Medications Current Medications Current Medications Medications (Trade) Dose Ordered Sig/Audrey Start Time Stop Time Status Last Admin Dose Admin Levetiracetam 1000 mg/Dextrose 110 ml @ 440 mls/hr 1X ONCE 02/16/17 16:15 02/16/17 16:15 DC Levetiracetam 1000 mg/Sodium Chloride 110 ml @ 440 mls/hr 1X ONCE 02/16/17 16:15 02/16/17 16:29 DC 02/16/17 16:15 440 MLS/HR Lorazepam (Ativan) 1 mg PRN Q4HRS PRN 02/16/17 16:00 02/16/17 16:00 1 MG Allergies Allergies Allergies Coded Allergies Type Severity Reaction Last Updated Verified Sulfa (Sulfonamide Antibiotics) Allergy Intermediate 08/25/14 No Physical Exam Physical Exam Constitutional: Well developed, well nourished, no acute distress, non-toxic appearance. [] HENT: Normocephalic, atraumatic, bilateral external ears normal, oropharynx moist, no oral exudates, nose normal. [] Eyes: PERRLA, EOMI, conjunctiva normal, no discharge. [] Neck: Normal range of motion, no tenderness, supple, no stridor. [] Cardiovascular:Heart rate regular rhythm, no murmur [] Lungs & Thorax: Bilateral breath sounds clear to auscultation [] Abdomen: Bowel sounds normal, soft, no tenderness, no masses, no pulsatile masses. [] Skin: Warm, dry, no erythema, no rash. [] Back: No tenderness, no CVA tenderness. [] Extremities: No tenderness, no cyanosis, no clubbing, ROM intact, no edema. [] Neurologic: Alert and oriented X 3, normal motor function, normal sensory function, no focal deficits noted. [] Current Patient Data Vital Signs Vital Signs Date Time Temp Pulse Resp B/P (MAP) Pulse Ox O2 Delivery O2 Flow Rate FiO2 02/16/17 16:29 82 100 02/16/17 15:26 98.3 16 108/57 (74) Room Air 98.3 Lab Values Laboratory Tests Test 02/16/17 16:45 White Blood Count 14.6 x10^3/uL (4.0-11.0) H Red Blood Count 4.67 x10^6/uL (3.50-5.40) Hemoglobin 14.8 g/dL (12.0-15.5) Hematocrit 44.1 % (36.0-47.0) Mean Corpuscular Volume 95 fL (79-100) Mean Corpuscular Hemoglobin 32 pg (25-35) Mean Corpuscular Hemoglobin Concent 34 g/dL (31-37) Red Cell Distribution Width 13.0 % (11.5-14.5) Platelet Count 118 x10^3/uL (140-400) L Neutrophils (%) (Auto) 91 % (31-73) H Lymphocytes (%) (Auto) 6 % (24-48) L Monocytes (%) (Auto) 3 % (0-9) Eosinophils (%) (Auto) 0 % (0-3) Basophils (%) (Auto) 0 % (0-3) Neutrophils # (Auto) 13.2 x10^3uL (1.8-7.7) H Lymphocytes # (Auto) 0.8 x10^3/uL (1.0-4.8) L Monocytes # (Auto) 0.5 x10^3/uL (0.0-1.1) Eosinophils # (Auto) 0.0 x10^3/uL (0.0-0.7) Basophils # (Auto) 0.0 x10^3/uL (0.0-0.2) Segmented Neutrophils % 92 % (35-66) H Lymphocytes % 5 % (24-48) L Monocytes % 3 % (0-10) Platelet Estimate Decreased (ADEQUATE) Sodium Level 138 mmol/L (136-145) Potassium Level 4.6 mmol/L (3.5-5.1) Chloride Level 102 mmol/L (98-107) Carbon Dioxide Level 28 mmol/L (21-32) Anion Gap 8 (6-14) Blood Urea Nitrogen 6 mg/dL (7-20) L Creatinine 1.0 mg/dL (0.6-1.0) Estimated GFR (Cockcroft-Gault) 62.7 BUN/Creatinine Ratio 6 (6-20) Glucose Level 94 mg/dL (70-99) Calcium Level 9.1 mg/dL (8.5-10.1) Total Bilirubin 0.3 mg/dL (0.2-1.0) Aspartate Amino Transferase (AST) 17 U/L (15-37) Alanine Aminotransferase (ALT) 17 U/L (14-59) Alkaline Phosphatase 52 U/L (46-116) Total Protein 7.8 g/dL (6.4-8.2) Albumin 4.0 g/dL (3.4-5.0) Albumin/Globulin Ratio 1.1 (1.0-1.7) Serum Test, Qualitative Negative (NEG) Laboratory Tests 02/16/17 16:45 Laboratory Tests 02/16/17 16:45 EKG EKG [] Radiology/Procedures Radiology/Procedures [] Course & Med Decision Making Course & Med Decision Making Pertinent Labs and Imaging studies reviewed. (See chart for details) [Patient with breakthrough seizures presumably contrary to noncompliance. Patient with witnessed seizure episode in the ED, brief self-limited typical of tonic-clonic seizures. Keppra and Ativan given. Patient monitored and to return to baseline. Patient labs checked. Patient states seizure activity usually increases around the time of her menstrual period which she is currently on. Admission to the hospital for further observation and management declined. I did contact the patient's pharmacy and confirm that a prescription of on the with be available to the patient upon discharge from the ED. She is instructed to follow-up with her neurologist later this week. Term precautions reviewed. Patient verbalizes understanding agreement discharge instructions prior to departure.] Peter Disclaimer Dragon Disclaimer This electronic medical record was generated, in whole or in part, using a voice recognition dictation system. Departure Departure Impression: Primary Impression: Breakthrough seizure Disposition: 01 HOME, SELF-CARE Condition: STABLE Referrals: NO PCP (PCP) ADAN STONE DO Feb 16, 2017 16:08
[2017-02-16] MEDS ORDERED: levETIRAcetam 1,000 MG in IV DEXTROSE 5% 100 ML IV ONE (16:15)
[2017-02-16 16:59] LABS: BASO % 0 % (0-3); EOS % 0 % (0-3); HEMATOCRIT 44.1 % (36.0-47.0); HEMOGLOBIN 14.8 g/dL (12.0-15.5); LYMPH # 0.8 x10^3/uL (1.0-4.8); LYMPH % 6 % (24-48); MEAN CORPUSCULAR HEMOGLOBIN 32 pg (25-35); MEAN CORPUSCULAR HGB CONC 34 g/dL (31-37); MEAN CORPUSCULAR VOLUME 95 fL (79-100); MONO % 3 % (0-9); NEUT % 91 % (31-73); PLATELET COUNT 118 x10^3/uL (140-400); RED BLOOD COUNT 4.67 x10^6/uL (3.50-5.40); WHITE BLOOD COUNT 14.6 x10^3/uL (4.0-11.0)
[2017-02-16 17:11] LABS: CALCIUM 9.1 mg/dL (8.5-10.1); GFR 62.7; POTASSIUM 4.6 mmol/L (3.5-5.1)
[2017-02-16 17:15] LABS: NEG OBC SER NEG; POS OBC SER POS
[2017-02-16 17:17] LABS: ALBUMIN/GLOBULIN RATIO 1.1 (1.0-1.7); TOTAL BILIRUBIN 0.3 mg/dL (0.2-1.0); TOTAL PROTEIN 7.8 g/dL (6.4-8.2)
[2017-02-16 17:23] LABS: PLT ESTIMATE DECREASED (ADEQUATE)
[2017-02-16 18:27] VITALS: BP 87/49
== END 2017-02-16 18:54 | disposition home or self-care (01) ==
LOC: ER 15:14
DX: R56.9 Unspecified convulsions (principal); G40.909 Epilepsy, unspecified, not intractable, without status epilepticus; M32.9 Systemic lupus erythematosus, unspecified; F12.10 Cannabis abuse, uncomplicated; Z88.2 Allergy status to sulfonamides
CPT/HCPCS: 36415; 80053; 84703; 85007; 85025; 96365; 96375; 96376; 99284; J1953; J2060